=== PATIENT | female | born 1975 | race Caucasian/White ===

== ENCOUNTER 2019-07-01 11:29 | Outpatient (CLI) | payer BC, MEDICAID, SELFPAY ==
[2019-07-01 12:15] VITALS: PULSE 90; O2SAT 96
[2019-07-01 12:20] VITALS: PULSE 120; O2SAT 87
[2019-07-01 12:23] VITALS: O2SAT 91
[2019-07-01 12:45] VITALS: PULSE 96; O2SAT 95
--- NOTE | 2019-07-01 13:45 | HOMEO2EVAL ---
Home Oxygen Evaluation RC: Home Oxygen (O2) Evaluation Start: 07/01/19 13:41 Freq: Status: Active Protocol: RPE Activity Type Activity Date Activity User E-Sign Co-Sign Detail Recorded Client Recorded Date Recorded By Document 07/01/19 12:15 HUMPHREY [id number] 07/01/19 13:44 HUMPHREY Document 07/01/19 12:20 HUMPHREY [id number] 07/01/19 13:44 HUMPHREY Document 07/01/19 12:23 HUMPHREY [id number] 07/01/19 13:44 HUMPHREY Document 07/01/19 12:45 HUMPHREY [id number] 07/01/19 13:44 HUMPHREY 07/01/19 07/01/19 07/01/19 12:15 12:20 12:23 Home O2 Evaluation Test Phase Resting Exercise Exercise Oxygen Delivery Room Air Room Air Nasal Cannula Oxygen Flow Rate (L/min) 1 Pulse Oximetry (90-100 %) 96 87 L 91 Pulse Rate (60-100 beats/min) 90 120 H Ambulation Distance (feet) Home Oxygen Evaluation Comments Treatment Charges O2 Evaluation 07/01/19 12:45 Home O2 Evaluation Test Phase Resting Oxygen Delivery Room Air Oxygen Flow Rate (L/min) Pulse Oximetry (90-100 %) 95 Pulse Rate (60-100 beats/min) 96 Ambulation Distance (feet) 1,200 Home Oxygen Evaluation Comments PT WALKED FOR 6 MIN, WENT 1200 FEET TOTAL. PT REQUIRES 1 L WITH ACTIVITY/ EXERTION Treatment Charges
--- NOTE | 2019-07-01 13:46 | PCRCNOTE ---
HOME O2 EVAL DONE, PT REQUIRES 1 L WITH ACTIVITY. FAXED EVAL TO OFFICE IN [place]
== END 2019-07-01 11:30 | disposition home or self-care (01) ==
LOC: ANHPFT 11:32
PROVIDERS: PCP Nurse Practitioner; Visit Provider Internal Medicine Critical Care Medicine
DX: J44.9 Chronic obstructive pulmonary disease, unspecified (principal)
CPT/HCPCS: 94618

== ENCOUNTER 2019-09-13 15:16 | Emergency (ER) | payer BC, MEDICAID, SELFPAY ==
--- NOTE | ~2019-09-13 | XR_ITS ---
EXAMINATION: XR chest 2V DATE: 09/13/2019 16:47 INDICATION: Shortness of breath and cough. TECHNIQUE: Frontal and lateral views of the chest were obtained. COMPARISON: CT abdomen and pelvis 12/09/2018 FINDINGS: The chest demonstrates clear lungs without pneumonia, pleural effusion, or pneumothorax. Th e heart size is normal. There are old healed left rib fractures. IMPRESSION: 1. No acute cardiopulmonary disease. Reviewed, dictated and finalized at location A.
--- NOTE | 2019-09-13 15:29 | ECG_ITS ---
Measurements Intervals [place] Rate: 94 P: 67 [place]: 161 QRS: 50 QRSD: 82 T: 55 QT: 365 QTc: 458 Interpretive Statements SINUS RHYTHM BASELINE ARTIFACT- I, II, III, AVL, AVF, V1, V3 BORDERLINE ECG Electronically Signed On 09-13-2019 15:48:45 CDT by Dylan Byrd D.O.
[2019-09-13 15:30] VITALS: BP 148/74; PULSE 94; RESP 19; TEMP 36.9; O2SAT 100
[2019-09-13 15:43] LABS: Basophils Percent Auto 0.4 % (0.2-1.2); Eosinophils Absolute Auto 0.3 K/mm3 (0-0.3); Eosinophils Percent Auto 2.6 % (0-4.4); Hematocrit 41.2 % (37.0-47.0); Hemoglobin 14.2 g/dL (12.0-15.0); Immature Granulocyte Absolute 0.03 K/mm3 (0.00-0.031); Immature Granulocyte Percent A 0.3 % (0-0.5); Lymphocytes Absolute Auto 3.16 K/mm3 (0.9-3.2); Lymphocytes Percent Auto 29.9 % (18.3-44.2); Mean Corpuscular HGB Conc 34.5 g/dl (32-36); Mean Corpuscular Hemoglobin 29.9 pg (26-34); Mean Corpuscular Volume 86.7 fl (80-100); Mean Platelet Volume 9.1 fl (7.4-10.4); Monocytes Absolute Auto 0.9 K/mm3 (0.1-0.6); Monocytes Percent Auto 8.1 % (2.6-8.5); Neutrophils Absolute Auto 6.2 K/mm3 (1.3-6.7); Neutrophils Percent Auto 58.7 % (45.5-73.1); Platelet Count Result 349 k/mm3 (150-375); Red Blood Count 4.75 M/mm3 (4.2-5.4); Red Cell Distribution Width 13.2 % (11.5-14.5); White Blood Count 10.6 K/mm3 (4.5-10.0)
[2019-09-13 15:54] LABS: Blood Urea Nitrogen 5 mg/dL (7-17); Calcium 9.1 mg/dL (8.4-10.2); Carbon Dioxide 24 mmol/L (22-30); Chloride 105 mmol/L (98-107); Estimated Glomerular Filt Rate > 60; Glucose 84 mg/dL (65-105); Potassium 3.6 mmol/L (3.4-5.0); Sodium 135 mmol/L (137-145)
[2019-09-13 16:06] LABS: NT Pro B Type Natriuretic Pept 61 PG/ML (5-100); Troponin I < 0.012 ng/mL (0.000-0.034)
[2019-09-13 16:27] LABS: Add Urine Microscopic? NO; Appearance Urine Clear (Clear); Bilirubin Urine Negative (Negative); Blood Urine Negative (Negative); Color Urine Colorless (Yellow); Glucose Urine UA Negative (Negative); Ketones Urine Negative (Negative); Leukocyte Esterase Ur Negative LEU/UL (Negative); Nitrate Urine Negative (Negative); Protein Urine Negative (Negative); Urobilinogen Urine Negative mg/dL (<2.0)
[2019-09-13 16:34] LABS: Specific Grav Ur 1.003 (1.001-1.035)
[2019-09-13 18:18] VITALS: BP 149/76; PULSE 94; RESP 22; O2SAT 97
--- NOTE | 2019-09-13 18:48 | ED.GENADULT ---
HPI - General Adult General Chief complaint: Shortness of Breath/Dyspnea Stated complaint: diff breathing/legs swollen Time Seen by Provider: 09/13/19 18:22 History of Present Illness HPI narrative: Patient is a 44 y/o female complaining of moderate SOB for 2-3 weeks. There is no alleviating or exacerbating factor. She has no fever. She has some chest pain associated with cough. She also noticed leg swelling, worse on right side. She has history of COPD and she is on home O2 at 1L. She had a recent appointment with cardiology, but had to cancel her appointment because 3 family members tested positive for COVID. Related Data Allergies Allergy/AdvReac Type Severity Reaction Status Date / Time chlorpromazine Allergy Unknown Unknown Verified 12/09/18 17:25 haloperidol Allergy Unknown Unknown Verified 12/09/18 17:25 midodrine Allergy Unknown Unknown Verified 12/09/18 17:25 Penicillins Allergy Unknown Unknown Verified 12/09/18 17:25 Sulfa (Sulfonamide Allergy Unknown Other Verified 12/09/18 17:25 Antibiotics) thioridazine Allergy Unknown Unknown Verified 12/09/18 17:25 Review of Systems Constitutional: Constitutional: Denies chills, Denies fever(s), Denies headache(s) and Denies weakness Eyes: Eyes: Denies blurry vision ENT: Denies headache(s) and Denies neck pain Cardiovascular: Cardiovascular: Reports chest pain and Reports dyspnea Respiratory: Respiratory: Reports cough and Reports dyspnea Gastrointestinal: Gastrointestinal: Denies abdominal pain, Denies diarrhea, Denies nausea and Denies vomiting Genitourinary: Genitourinary: Denies hematuria and Denies dysuria Musculoskeletal: Musculoskeletal: Denies back pain and Denies neck pain Neurologic: Denies headache(s) and Denies weakness Exam Const: General: no acute distress and well developed Orientation/consciousness: oriented to person, oriented to place, oriented to time and patient oriented x3 HENMT: Head: normocephalic Ears: external ears normal General nose exam: Normal external nose present Eyes: General: appearance normal, both eyes and all related structures Conjunctivae: conjunctivae normal Neck: Neck: normal visual inspection and full ROM Chest: Chest palpation & inspection: normal inspection of the chest and no tenderness Resp: Effort & Inspection: normal respiratory effort and able to speak in complete sentences Cardio: Rate: regular rate Rhythm: regular rhythm GI: GI Palp: No abdominal tenderness and Yes Soft to palpation Skin: General skin exam: normal color and turgor normal Neuro: General: oriented to person, oriented to place, oriented to time and patient oriented x3 Cognition (Neuro): normal cognition Extrem: General: normal to inspection, full ROM and edema bilateral Psych: Appearance: grossly normal Mental Status: mental status grossly normal Affect: normal affect Course Vital Signs Vital signs: Vital Signs Temperature 36.9 C 09/13/19 15:30 Pulse Rate 94 09/13/19 15:30 Respiratory Rate 19 09/13/19 15:30 Blood Pressure 148/74 H 09/13/19 15:30 Pulse Oximetry 100 09/13/19 15:30 Temperature 36.9 C 09/13/19 15:30 Pulse Rate 94 09/13/19 18:18 Respiratory Rate 22 H 09/13/19 18:18 Blood Pressure 149/76 H 09/13/19 18:18 Pulse Oximetry 97 09/13/19 18:18 Medical Decision Making Vital Signs Vital Signs: Vital Signs Temperature 36.9 C 09/13/19 15:30 Pulse Rate 94 09/13/19 15:30 Respiratory Rate 19 09/13/19 15:30 Blood Pressure 148/74 H 09/13/19 15:30 Pulse Oximetry 100 09/13/19 15:30 Temperature 36.9 C 09/13/19 15:30 Pulse Rate 94 09/13/19 18:18 Respiratory Rate 22 H 09/13/19 18:18 Blood Pressure 149/76 H 09/13/19 18:18 Pulse Oximetry 97 09/13/19 18:18 Lab Data Result diagrams: 09/13/19 15:33 09/13/19 15:33 Labs: Lab Results 09/13/19 09/13/19 09/13/19 Range/Units 15:33 15:33 15:33 WBC 10.6 H (4.5-10.0) K/mm3 RBC
[2019-09-13 19:16] LABS: D Dimer 0.39 ug/mL (<0.48)
[2019-09-13 20:04] VITALS: BP 152/92; PULSE 80; RESP 18; O2SAT 98
[2019-09-14 14:52] LABS: SARS-CoV-2 RNA PCR Negative
== END 2019-09-13 20:05 | disposition home or self-care (01) ==
PROVIDERS: Emergency Medicine; Emergency Provider Emergency Medicine; PCP Nurse Practitioner Family
DX: Z20.828 Contact with and (suspected) exposure to other viral communicable diseases (principal); J44.1 Chronic obstructive pulmonary disease with (acute) exacerbation; Z99.81 Dependence on supplemental oxygen
CPT/HCPCS: 36415; 71046; 80048; 81003; 81025; 83880; 84484; 85025; 85380; 87635; 93005; 96374; 99284; C9803; J1100; U0003

== ENCOUNTER 2020-01-23 13:28 | Emergency (ER) | payer BC, MEDICAID, SELFPAY ==
[2020-01-23 13:33] VITALS: BP 124/71; PULSE 100; RESP 15; TEMP 36.4; O2SAT 97
--- NOTE | 2020-01-23 13:55 | PC.NURSE ---
patient brought back to ED room 20 with sores in bilateral axilla areas. see triage notes. alert. oriented. assessments documented. patient on home O2 at 2L NC. no distress noted. call light in reach.
--- NOTE | 2020-01-23 15:02 | ED.SKABFB ---
HPI - Skin/Abscess/Foreign Bdy General Chief complaint: Skin/Abscess/Foreign Body Stated complaint: sores all over for last week Time Seen by Provider: 01/23/20 14:13 Source: patient Mode of arrival: ambulatory Limitations: no limitations History of Present Illness HPI narrative: This is a 44-year-old female that presents to the emergency department for abscess to right axilla x1 week. Reports some drainage from the area. Reports history of abscesses. Denies fevers. Related Data Home Medications Medication Instructions Recorded Confirmed albuterol sulfate 01/23/20 albuterol sulfate INHALATION 01/23/20 amitriptyline 25 mg HS 01/23/20 amlodipine 01/23/20 budesonide-formoterol [Symbicort] INHALATION 01/23/20 buspirone mg 01/23/20 citalopram mg 01/23/20 clonazepam 01/23/20 clonidine HCl 01/23/20 doxycycline monohydrate 01/23/20 duloxetine mg PO 01/23/20 fluticasone propion-salmeterol INHALATION 01/23/20 [Advair Diskus] furosemide 01/23/20 hydroxyzine HCl 01/23/20 hyoscyamine sulfate mg 01/23/20 ipratropium-albuterol ml INHALATION 01/23/20 nicotine (polacrilex) mg 01/23/20 oxybutynin chloride mg PO 01/23/20 quetiapine 01/23/20 ranolazine mg PO 01/23/20 ropinirole mg 01/23/20 theophylline mg PO 01/23/20 Allergies Allergy/AdvReac Type Severity Reaction Status Date / Time acetaminophen [From Midrin] Allergy Other Verified 01/23/20 14:36 chlorpromazine Allergy Other Verified 01/23/20 14:36 [From Thorazine] dichloralphenazone Allergy Other Verified 01/23/20 14:36 [From Midrin] isometheptene [From Midrin] Allergy Other Verified 01/23/20 14:36 Penicillins Allergy Hives Verified 01/23/20 14:36 Sulfa (Sulfonamide Allergy Hives Verified 01/23/20 14:36 Antibiotics) thioridazine [From Mellaril] Allergy Other Verified 01/23/20 14:36 haloperidol [From Haldol] AdvReac Other Verified 01/23/20 14:36 Review of Systems Review of Systems: Narrative: CONSTITUTIONAL: Denies fever SKIN: Reports abscess All systems reviewed & are unremarkable except as noted in HPI and below PMFSH Past Medical History Medical History (Updated 01/23/20 @ 16:16 by Lexie Leon PA-C) History of bipolar disorder History of COPD Exam Narrative: Exam Narrative: GENERAL: Well-appearing, obese, and in no acute distress. HEAD: Normocephalic, atraumatic. EYES: EOMI. EXTREMITIES: Normal range of motion. No edema or erythema. Right axilla with 2 small (2cm) areas of erythema with central fluctuance with small amount of purulent drainage expressible. No lymphangitic streaking SKIN: Warm, dry, no rash. NEURO: No focal deficits. Alert and oriented x3. PSYCH: Normal mood and affect Course Vital Signs Vital signs: Vital Signs Temperature 97.5 F L 01/23/20 13:33 Pulse Rate 100 01/23/20 13:33 Respiratory Rate 15 01/23/20 13:33 Blood Pressure 124/71 01/23/20 13:33 Pulse Oximetry 97 01/23/20 13:33 Temperature 97.5 F L 01/23/20 13:33 Pulse Rate 100 01/23/20 13:33 Respiratory Rate 15 01/23/20 13:33 Blood Pressure 124/71 01/23/20 13:33 Pulse Oximetry 97 01/23/20 13:33 Procedures Abscess I/D upper extremity: Date of Incision: 01/23/20 Time of Incision: 16:04 Side (if applicable): right Local Anesthetic: lidocaine 1% and with epi Amount of anesthesia used (mL): 2 Technique: needle aspiration Packing used?: none I&D Results: Pus and Blood other: Date of Incision: 01/23/20 Time of Incision: 16:15 Side (if applicable): right Local Anesthetic: lidocaine 1% and with epi Amount of anesthesia used (mL): 2 Technique: needle aspiration Packing used?: none I&D Results: Pus and Blood MDM - Skin/Abscess/Foreign Bdy MDM Narrative Medical decision making narrative: Patient presents the emergency department for 2 small abscesses to the right axilla. These were I&D by chi
[2020-01-23] MEDS: LIDO 1%/EPINEPHRINE 1:100,000 20 ML VIAL INFILTRATE (15:39)
--- NOTE | 2020-01-23 15:59 | ED.SKABFB ---
HPI - Skin/Abscess/Foreign Bdy General Chief complaint: Skin/Abscess/Foreign Body Stated complaint: sores all over for last week Time Seen by Provider: 01/23/20 14:13 Source: patient Mode of arrival: ambulatory Limitations: no limitations History of Present Illness HPI narrative: This is a 44-year-old female that presents to the emergency department for abscess to right axilla x1 week. Does report drainage from the area. Denies fevers. Related Data Home Medications Medication Instructions Recorded Confirmed albuterol sulfate 01/23/20 albuterol sulfate INHALATION 01/23/20 amitriptyline 25 mg HS 01/23/20 amlodipine 01/23/20 budesonide-formoterol [Symbicort] INHALATION 01/23/20 buspirone mg 01/23/20 citalopram mg 01/23/20 clonazepam 01/23/20 clonidine HCl 01/23/20 doxycycline monohydrate 01/23/20 duloxetine mg PO 01/23/20 fluticasone propion-salmeterol INHALATION 01/23/20 [Advair Diskus] furosemide 01/23/20 hydroxyzine HCl 01/23/20 hyoscyamine sulfate mg 01/23/20 ipratropium-albuterol ml INHALATION 01/23/20 nicotine (polacrilex) mg 01/23/20 oxybutynin chloride mg PO 01/23/20 quetiapine 01/23/20 ranolazine mg PO 01/23/20 ropinirole mg 01/23/20 theophylline mg PO 01/23/20 Allergies Allergy/AdvReac Type Severity Reaction Status Date / Time acetaminophen [From Midrin] Allergy Other Verified 01/23/20 14:36 chlorpromazine Allergy Other Verified 01/23/20 14:36 [From Thorazine] dichloralphenazone Allergy Other Verified 01/23/20 14:36 [From Midrin] isometheptene [From Midrin] Allergy Other Verified 01/23/20 14:36 Penicillins Allergy Hives Verified 01/23/20 14:36 Sulfa (Sulfonamide Allergy Hives Verified 01/23/20 14:36 Antibiotics) thioridazine [From Mellaril] Allergy Other Verified 01/23/20 14:36 haloperidol [From Haldol] AdvReac Other Verified 11/22/20 14:36 Review of Systems Review of Systems: Narrative: CONSTITUTIONAL: Denies fever SKIN: Reports abscess All systems reviewed & are unremarkable except as noted in HPI and below PMFSH Past Medical History Medical History (Updated 01/23/20 @ 15:03 by Lexie Leon PA-C) History of bipolar disorder History of COPD Exam Narrative: Exam Narrative: GENERAL: Well-appearing, well-nourished, and in no acute distress. HEAD: Normocephalic, atraumatic. EYES: EOMI. EXTREMITIES: Normal range of motion. No edema. Right axilla with 2 small (2cm) areas of erythema with central fluctuance, no lymphangitic streaking SKIN: Warm, dry, no rash. NEURO: No focal deficits. Alert and oriented x3. PSYCH: Normal mood and affect Course Vital Signs Vital signs: Vital Signs Temperature 97.5 F L 01/23/20 13:33 Pulse Rate 100 01/23/20 13:33 Respiratory Rate 15 01/23/20 13:33 Blood Pressure 124/71 01/23/20 13:33 Pulse Oximetry 97 01/23/20 13:33 Temperature 97.5 F L 01/23/20 13:33 Pulse Rate 100 01/23/20 13:33 Respiratory Rate 15 01/23/20 13:33 Blood Pressure 124/71 01/23/20 13:33 Pulse Oximetry 97 01/23/20 13:33 Discharge Plan Discharge Prescriptions: No Action furosemide 40 mg tablet RF: 0 fluticasone propion-salmeterol [Advair Diskus] 250-50 mcg/dose blister with device INHALATION RF: 0 oxybutynin chloride 15 mg tablet extended release 24hr PO RF: 0 ropinirole 1 mg tablet RF: 0 ipratropium-albuterol 0.5 mg-3 mg(2.5 mg base)/3 mL solution for nebulization INHALATION RF: 0 citalopram 40 mg tablet RF: 0 nicotine (polacrilex) 2 mg gum RF: 0 albuterol sulfate 1.25 mg/3 mL solution for nebulization RF: 0 quetiapine 200 mg tablet RF: 0 amlodipine 2.5 mg tablet RF: 0 hydroxyzine HCl 50 mg tablet RF: 0 doxycycline monohydrate 100 mg tablet RF: 0 theophylline 300 mg tablet extended release 12 hr PO RF: 0 clonidine HCl 0.2 mg tablet RF: 0 amitri
--- NOTE | 2020-01-23 16:05 | PC.NURSE ---
provider in room now for I/D procedure.
[2020-01-23 16:24] VITALS: BP 148/78; PULSE 88; RESP 22; O2SAT 95
== END 2020-01-23 16:25 | disposition home or self-care (01) ==
PROVIDERS: Emergency Provider Emergency Medicine; PCP Nurse Practitioner Family
DX: L02.411 Cutaneous abscess of right axilla (principal); J44.9 Chronic obstructive pulmonary disease, unspecified; F31.9 Bipolar disorder, unspecified
CPT/HCPCS: 10160; 99283

== ENCOUNTER 2020-03-04 12:47 | Inpatient (IN) | payer BC, MEDICAID, SELFPAY ==
[2020-03-04] VITALS (15 sets, daily range): BP systolic 129–162; BP diastolic 58–99; PULSE 110–132; RESP 0–28; TEMP 36.4–38; O2SAT 96–100; BMI 33.2
--- NOTE | ~2020-03-04 | CT_ITS ---
EXAMINATION: CT abdomen pelvis w con INDICATION: Right upper quadrant pain, nausea, vomiting TECHNIQUE: Computed tomographic images of the abdomen and pelvis were obtained after the administrati on of 100 cc of Omnipaque 350 intravenous contrast. The dose-length product (DLP) was 952.25 mGy-cm. Automated exposure control and iterative reconstruction technique were employed. COMPARISON: 12/09/2018 FINDINGS: Minimal dependent atelectasis is present in the lung bases. The heart size is normal. Punct ate calcifications in an otherwise normal spleen likely represent healed granulomatous disease. 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 The pancreas, gallbladder, and adrenal glands are normal. The kidneys are un remarkable. No pathologically enlarged abdominal or pelvic lymph nodes are identified. There is calci fied atherosclerosis of the aorta and many of the other arteries. There is no free intraperitoneal ga s or evidence of bowel obstruction. There is a greater than normal number of fluid-filled, nondistend ed loops of large and small bowel. Liquid stool is present in the colon to the level of the rectum. T here is moderate lower thoracic spondylosis. A fat-containing umbilical hernia is noted. 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 IMPRESSION: 1. Greater than normal number of fluid-filled, nondistended loops of large and small bowel, consisten t with enterocolitis. Reviewed, dictated and finalized at location A. REPORT DEVELOPER IMPRESSION: 1. Greater than normal number of fluid-filled, nondistended loops of large and small bowel, consistent with enterocolitis.
--- NOTE | ~2020-03-04 | XR_ITS ---
EXAMINATION: XR chest 1V portable DATE: 03/04/2020 13:47 INDICATION: Viral infection. Shortness of breath. TECHNIQUE: frontal view of the chest was obtained. COMPARISON: Chest radiograph dated 09/13/2019 FINDINGS: The lungs remain clear with no focal airspace opacities, pulmonary edema, pleural effusion or pneumot horax. The cardiomediastinal silhouette is normal. Multiple old healed left-sided rib fractures. IMPRESSION: 1. No acute cardiopulmonary disease. Reviewed, dictated and finalized at location A. ING MANAGER
--- NOTE | 2020-03-04 13:06 | ECG_ITS ---
Measurements Intervals [place] Rate: 127 P: 66 VT: 137 QRS: 81 QRSD: 81 T: 75 QT: 401 QTc: 583 Interpretive Statements SINUS TACHYCARDIA BORDERLINE ST-T WAVE ABNORMALITY- DIFFUSE LEADS BASELINE WANDER- V1-V6 ABNORMAL ECG Electronically Signed On 03-04-2020 14:05:15 TAP DANCER by Dylan Byrd D.O.
[2020-03-04 13:21] LABS: Basophils Absolute Auto 0.1 K/mm3 (0.0-0.1); Basophils Percent Auto 1.1 % (0.2-1.2); Eosinophils Percent Auto 0.2 % (0-4.4); Hematocrit 45.3 % (37.0-47.0); Immature Granulocyte Absolute 0.02 K/mm3 (0.00-0.031); Immature Granulocyte Percent A 0.3 % (0-0.5); Lymphocytes Absolute Auto 1.11 K/mm3 (0.9-3.2); Lymphocytes Percent Auto 17.3 % (18.3-44.2); Mean Corpuscular HGB Conc 35.3 g/dl (32-36); Mean Corpuscular Hemoglobin 29.6 pg (26-34); Mean Corpuscular Volume 83.9 fl (80-100); Mean Platelet Volume 9.6 fl (7.4-10.4); Monocytes Absolute Auto 1.3 K/mm3 (0.1-0.6); Monocytes Percent Auto 19.9 % (2.6-8.5); Neutrophils Absolute Auto 3.9 K/mm3 (1.3-6.7); Neutrophils Percent Auto 61.2 % (45.5-73.1); Platelet Count Result 289 k/mm3 (150-375); Red Cell Distribution Width 12.3 % (11.5-14.5); White Blood Count 6.4 K/mm3 (4.5-10.0)
[2020-03-04 13:32] LABS: Alanine Aminotransferase 52 U/L (4-35); Albumin Level 4.1 g/dL (3.5-5.1); Alkaline Phosphatase 84 U/L (38-126); Anion Gap 14 mmol/L (8-16); Aspartate Amino Transferase 42 U/L (14-36); Bilirubin,Total 0.6 mg/dL (0.2-1.3); Blood Urea Nitrogen 12 mg/dL (7-17); Carbon Dioxide 21 mmol/L (22-30); Chloride 95 mmol/L (98-107); Estimated CRCL calculation 59 ml/min; Estimated Glomerular Filt Rate 48; Glucose 143 mg/dL (65-105); Lipase 20 U/L (23-300); Potassium 3.3 mmol/L (3.4-5.0); Sodium 130 mmol/L (137-145)
[2020-03-04] MEDS: ONDANSETRON INJ 4 MG/2 ML VIAL IV PUSH ×2 (13:48→19:29)
[2020-03-04] MEDS: SODIUM CHLORIDE 0.9% IV 1,000 ML 999 ML IV CONT (13:48)
--- NOTE | 2020-03-04 14:23 | WPDEDEXPGENP ---
HPI - General Ped General Chief complaint: Fever Stated complaint: FEVER, DIARRHEA, NAUSEA Time Seen by Provider: 03/04/20 13:32 Source: patient Limitations: no limitations History of Present Illness HPI narrative: 45 years old white female presents with nausea, vomiting and diarrhea for the last 2 days. Patient reports vomiting at least 12 times a day and diarrhea at least 12 times a day. Patient also complaining of general body aches, headache, right upper quadrant pain. Patient feeling miserable. Patient lives with asymptomatic family. Patient reports fever and chills. Patient on chronic oxygen by nasal cannula 2 L during daytime, 3 L at night. Patient denies a history of Covid or exposure to anybody known having Covid. Related Data Home Medications Medication Instructions Recorded Confirmed albuterol sulfate 01/23/20 albuterol sulfate INHALATION 01/23/20 amitriptyline 25 mg HS 01/23/20 amlodipine 01/23/20 budesonide-formoterol [Symbicort] INHALATION 01/23/20 buspirone mg 01/23/20 citalopram mg 01/23/20 clonazepam 01/23/20 clonidine HCl 01/23/20 doxycycline monohydrate 01/23/20 duloxetine mg PO 01/23/20 fluticasone propion-salmeterol INHALATION 01/23/20 [Advair Diskus] furosemide 01/23/20 hydroxyzine HCl 01/23/20 hyoscyamine sulfate mg 01/23/20 ipratropium-albuterol ml INHALATION 01/23/20 nicotine (polacrilex) mg 01/23/20 oxybutynin chloride mg PO 01/23/20 quetiapine 01/23/20 ranolazine mg PO 01/23/20 ropinirole mg 01/23/20 theophylline mg PO 01/23/20 Allergies Allergy/AdvReac Type Severity Reaction Status Date / Time chlorpromazine Allergy Unknown Unknown Verified 03/04/20 12:48 haloperidol Allergy Unknown Unknown Verified 03/04/20 12:48 midodrine Allergy Unknown Unknown Verified 03/04/20 12:48 Penicillins Allergy Unknown Unknown Verified 03/04/20 12:48 Sulfa (Sulfonamide Allergy Unknown Other Verified 03/04/20 12:48 Antibiotics) thioridazine Allergy Unknown Unknown Verified 03/04/20 12:48 acetaminophen [From Midrin] Allergy Other Verified 03/04/20 12:48 dichloralphenazone Allergy Other Verified 03/04/20 12:48 [From Midrin] isometheptene [From Midrin] Allergy Other Verified 03/04/20 12:48 Pediatric Review of Systems : Review of Systems: CONSTITUTIONAL: Denies fever, chills, or sweats. EYES: Denies visual changes, redness, or discharge. ENT: Denies rhinorrhea, congestion, sore throat, or otalgia. CARDIOVASCULAR: Denies chest pain, palpitations, or edema. RESPIRATORY: Denies cough or dyspnea. GASTROINTESTINAL: Complaining of nausea, vomiting, diarrhea, abdominal pain GENITOURINARY: Denies dysuria or hematuria. SKIN: Denies rash or itching. MUSCULOSKELETAL: Denies back pain, joint pain, or myalgia. NEUROLOGIC: Denies headache, numbness, or weakness. PSYCHIATRIC: Denies anxiety or depression. [facility] Past Medical History Medical History (Updated 03/04/20 @ 15:28 by India Key MD) History of bipolar disorder History of COPD Social History Social History Gender identity (if verbalized by the patient): Female Pediatric Exam Narrative: Physical exam: General appearance: Well-developed, well-nourished Skin: Normal color Head: Normocephalic, nontraumatic Eyes: Clear conjunctiva ENT: Oropharynx normal, ears normal, nose normal Neck: Supple, nontender Chest and respiratory: Airway patent, no respiratory distress, no accessory muscle use Heart: Tachycardia Abdomen: Soft, mild tenderness right upper quadrant. , no organomegaly, quiet bowel sounds Vascular: Normal peripheral pulses, normal capillary refill. Musculoskeletal: Normal range of motion, nontender back Neurologic: Alert and oriented ?3, [employer] is normal as tested, no gross motor deficit
[2020-03-04 15:05] LABS: Add Urine Microscopic? YES; Appearance Urine Clear (Clear); Bilirubin Urine Negative (Negative); Blood Urine 1+ (Negative); Color Urine Colorless (Yellow); Glucose Urine UA Negative (Negative); Ketones Urine Negative (Negative); Leukocyte Esterase Ur Negative LEU/UL (Negative); Mucus Urine Rare /lpf; Nitrate Urine Negative (Negative); Protein Urine Negative (Negative); RBC Urine 0-2 /hpf (0-2); Specific Grav Ur 1.023 (1.001-1.035); Squamous Epithelial Cell Urine Occasional /hpf (Few); Urobilinogen Urine Negative mg/dL (<2.0); WBC Urine 0-3 /hpf
[2020-03-04] MEDS: POTASSIUM CHLORIDE 20 MEQ TABLET PO (15:32)
--- NOTE | 2020-03-04 16:25 | PC.NURSE ---
This patient, Sofya Azevedo, was admitted to 3 [facility] Surg Room 302-01. Patient/family oriented to hospital policies and general routines including ID bracelet, bed and alarms, visiting hours, pain management, procedures, bathroom and other care routines, personal items, smoking policy, room service/diet, and visiting hours. Report received from Scott LOBO. Information on how to activate the Rapid Response Team has been discussed. Patient/Family are encouraged to report perceived risks to care and to ask questions if they do not understand what they are told or what they should do.
[2020-03-04] MEDS: SODIUM CHLORIDE 0.9% IV 1,000 ML 125 ML IV CONT (16:40)
--- NOTE | 2020-03-04 16:56 | PM.IMHP ---
H&P: HPI History of Present Illness Date/Time: 03/04/20 16:56 Chief Complaint: Nausea, vomiting and diarrhea Narrative: Sofya Azevedo is a 45 year old female patient is a 45-year-old female with history of chronic respiratory failure on home oxygen and COPD patient states she has diarrhea nausea or vomiting for last 2 days, patient also complains abdominal pain, patient states her daughter who was treated for C diff came home about 4 days and and 2 days later patient developed the symptoms, patient states she had a soup yesterday and she was able to hold it, most concern is the diarrhea, described as a mucous, no blood, does c/o feverish, tired fatigue, denies any cough shortness of breath or wheezing other than her underlining COPD, denies any known COVID contact, patient had a CT scan of abdominal showed Greater than normal number of fluid-filled, nondistended loops of large and small bowel, consistent with enterocolitis. Will send the stool for C diff and culture, will empirically start the patient on vancomycin orally and follow-up on C diff toxin and further recommendation to follow, continue hydrate the patient and monitor Review of Systems Review of Systems: All systems reviewed & are unremarkable except as noted in HPI and below PMFSH Past Medical History Medical History (Updated 03/04/20 @ 15:28 by India Key MD) History of bipolar disorder History of COPD Social History Social History Gender identity (if verbalized by the patient): Female Meds Home Medications and Allergies Home Medications Medication Instructions Recorded Confirmed Type methylprednisolone [Medrol (Sanjay)] See Rx Instructions .ROUTE 09/13/19 Rx .COMPLEX #21 each albuterol sulfate 01/23/20 History albuterol sulfate INHALATION 01/23/20 History amitriptyline 25 mg HS 01/23/20 History amlodipine 01/23/20 History budesonide-formoterol [Symbicort] INHALATION 01/23/20 History buspirone mg 01/23/20 History citalopram mg 01/23/20 History clonazepam 01/23/20 History clonidine HCl 01/23/20 History doxycycline hyclate 100 mg PO BID 7 Days #14 cap 01/23/20 Rx doxycycline monohydrate 01/23/20 History duloxetine mg PO 01/23/20 History fluticasone propion-salmeterol INHALATION 01/23/20 History [Advair Diskus] furosemide 01/23/20 History hydroxyzine HCl 01/23/20 History hyoscyamine sulfate mg 01/23/20 History ipratropium-albuterol ml INHALATION 01/23/20 History nicotine (polacrilex) mg 01/23/20 History oxybutynin chloride mg PO 01/23/20 History quetiapine 01/23/20 History ranolazine mg PO 01/23/20 History ropinirole mg 01/23/20 History theophylline mg PO 01/23/20 History Allergies Allergy/AdvReac Type Severity Reaction Status Date / Time chlorpromazine Allergy Unknown Unknown Verified 03/04/20 12:48 haloperidol Allergy Unknown Unknown Verified 03/04/20 12:48 midodrine Allergy Unknown Unknown Verified 03/04/20 12:48 Penicillins Allergy Unknown Unknown Verified 03/04/20 12:48 Sulfa (Sulfonamide Allergy Unknown Other Verified 03/04/20 12:48 Antibiotics) thioridazine Allergy Unknown Unknown Verified 03/04/20 12:48 acetaminophen [From Midrin] Allergy Other Verified 03/04/20 12:48 dichloralphenazone Allergy Other Verified 03/04/20 12:48 [From Midrin] isometheptene [From Midrin] Allergy Other Verified 03/04/20 12:48 Vital Signs Vital Signs - 24 hr 03/04/20 12:50 03/04/20 13:04 03/04/20 13:05 Temperature 97.6 F Pulse Rate 132 H 127 H 126 H Respiratory Rate 22 H 21 H 22 H Blood Pressure 142/78 H 129/94 H Pulse Oximetry 97 98 98 03/04/20 13:23 03/04/20 13:30 03/04/20 14:16 Temperature Pulse Rate 120 H 117 H 114 H Respiratory Rate 28 H 0 L 20 Blood Pressure Pulse Oximetry 98 98 100 03/04/20 14:39 03/04/20 14:40 03/04/20 15:14 Temperature Pulse Rate 110 H 113 H 111 H Respiratory Rate 20 18 18 Blood Pressure 162/88 H
[2020-03-04] MEDS: POTASSIUM CHLORIDE 20 MEQ TABLET.ER PO (18:22)
[2020-03-04] MEDS: VANCOMYCIN ORAL 125 MG/2.5 ML SYRUP PO (18:22)
[2020-03-05] VITALS (11 sets, daily range): BP systolic 90–140; BP diastolic 50–77; PULSE 76–125; RESP 16–20; TEMP 36.3–37.9; O2SAT 90–97
[2020-03-05] MEDS: SODIUM CHLORIDE 0.9% IV 1,000 ML 125 ML IV CONT ×3 (00:01→17:14)
[2020-03-05] MEDS: VANCOMYCIN ORAL 125 MG/2.5 ML SYRUP PO ×5 (00:05→23:34)
[2020-03-05] MEDS: ONDANSETRON INJ 4 MG/2 ML VIAL IV PUSH (04:22)
[2020-03-05 04:46] LABS: IFOB Positive Control Positive; Immunochemical Fecal Occult Bl Negative (N)
[2020-03-05 06:07] LABS: Hematocrit 44.3 % (37.0-47.0); Hemoglobin 14.8 g/dL (12.0-15.0); Mean Corpuscular HGB Conc 33.4 g/dl (32-36); Mean Corpuscular Hemoglobin 29.2 pg (26-34); Mean Corpuscular Volume 87.5 fl (80-100); Mean Platelet Volume 9.3 fl (7.4-10.4); Platelet Count Result 229 k/mm3 (150-375); Red Blood Count 5.06 M/mm3 (4.2-5.4); Red Cell Distribution Width 12.4 % (11.5-14.5)
[2020-03-05 06:35] LABS: Anion Gap 9 mmol/L (8-16); Blood Urea Nitrogen 9 mg/dL (7-17); Calcium 8.2 mg/dL (8.4-10.2); Carbon Dioxide 23 mmol/L (22-30); Chloride 101 mmol/L (98-107); Estimated CRCL calculation 75 ml/min; Estimated Glomerular Filt Rate > 60; Glucose 117 mg/dL (65-105); Potassium 3.2 mmol/L (3.4-5.0); Sodium 133 mmol/L (137-145)
[2020-03-05 07:26] LABS: Band Neutrophils Percent 15 % (0-6); Eosinophils Percent Manual 2 % (0-4); Metamyelocytes Percent 1 %; Monocytes Percent Manual 20 % (3-9); Neutrophils Absolute Manual 3.05 K/mm3 (1.7-7.2); Neutrophils Percent Manual 46 % (46-73); Nucleated Red Blood Cells 1 %; Total Cells Counted 100
[2020-03-05 07:36] LABS: Platelet Estimate Adequate (Adequate)
[2020-03-05 08:25] LABS: Magnesium 2.1 mg/dL (1.6-2.3)
[2020-03-05] MEDS: POTASSIUM CHLORIDE 20 MEQ TABLET 40 MEQ PO (08:55)
[2020-03-05] MEDS: POTASSIUM CHLORIDE 20 MEQ TABLET.ER PO (08:56)
[2020-03-05] MEDS: FUROSEMIDE 40 MG TABLET PO (10:46)
[2020-03-05] MEDS: PANTOPRAZOLE 40 MG TABLET PO ×2 (10:47→21:21)
[2020-03-05] MEDS: METOPROLOL TARTRATE 50 MG TAB 100 MG PO ×2 (10:47→21:24)
[2020-03-05] MEDS: RANOLAZINE 500 MG TAB.ER.12H PO ×2 (11:41→21:22)
[2020-03-05] MEDS: PRAVASTATIN SODIUM 20 MG TABLET 80 MG PO (11:41)
[2020-03-05] MEDS: DULoxetine HCL 60 MG CAPSULE.DR PO (11:41)
[2020-03-05] MEDS: SPIRONOLACTONE 50 MG TABLET 100 MG PO (11:41)
[2020-03-05] MEDS: busPIRone HCL 10 MG TABLET 30 MG PO ×2 (11:42→21:20)
[2020-03-05] MEDS: MONTELUKAST SODIUM 10 MG TABLET PO (11:42)
[2020-03-05] MEDS: QUEtiapine FUMARATE 100 MG TABLET 200 MG PO ×2 (11:42→21:20)
[2020-03-05] MEDS: cloNIDine HCL 0.2 MG TABLET PO ×2 (11:45→22:06)
[2020-03-05] MEDS: hydrOXYzine HCL 25 MG TABLET 50 MG PO ×3 (11:45→22:07)
--- NOTE | 2020-03-05 13:32 | PM.IMPN ---
Progress Note: A&P Assessment and Plan (1) Enterocolitis: Code(s): K52.9 - Noninfective gastroenteritis and colitis, unspecified Status: Acute Assessment and Plan: 03/05/20 13:32 Sofya Azevedo is a 45 year old female patient is a 45-year-old female with history of chronic respiratory failure on home oxygen and COPD patient states she has diarrhea nausea or vomiting for last 2 days, patient also complains abdominal pain, patient states her daughter who was treated for C diff came home about 4 days and and 2 days later patient developed the symptoms, patient states she had a soup yesterday and she was able to hold it, most concern is the diarrhea, described as a mucous, no blood, does c/o feverish, tired fatigue, denies any cough shortness of breath or wheezing other than her underlining COPD, denies any known COVID contact, patient had a CT scan of abdominal showed Greater than normal number of fluid-filled, nondistended loops of large and small bowel, consistent with enterocolitis. Today patient had a several loose BMs, still complains of nausea or vomiting did have a apple juice this morning and was able to home, denies any fever or chills We have sent the stool for C diff and culture still pending we have empirically started the patient on vancomycin orally and follow-up on C diff toxin and further recommendation to follow, continue hydrate the patient and monitor (2) Sinus tachycardia: Code(s): R00.0 - Tachycardia, unspecified Status: Acute Assessment and Plan: Most likely secondary to stress from diarrhea and dehydration (3) Hypokalemia: Code(s): E87.6 - Hypokalemia Status: Acute Assessment and Plan: Most likely secondary to diarrhea supplement and monitor (4) Acute hyponatremia: Code(s): E87.1 - Hypo-osmolality and hyponatremia Status: Acute Assessment and Plan: Most likely secondary to to dehydration will monitor (5) RUBY (acute kidney injury): Code(s): N17.9 - Acute kidney failure, unspecified Status: Acute Assessment and Plan: Most likely secondary dehydration will monitor kidney function (6) COVID-19 virus test result unknown: Code(s): Z20.828 - Contact with and (suspected) exposure to other viral communicable diseases Status: Acute Assessment and Plan: Patient is being tested an isolated Subjective Date/time seen: 03/05/20 13:32 Sofya Azevedo is a 45 year old female patient is a 45-year-old female with history of chronic respiratory failure on home oxygen and COPD patient states she has diarrhea nausea or vomiting for last 2 days, patient also complains abdominal pain, patient states her daughter who was treated for C diff came home about 4 days and and 2 days later patient developed the symptoms, patient states she had a soup yesterday and she was able to hold it, most concern is the diarrhea, described as a mucous, no blood, does c/o feverish, tired fatigue, denies any cough shortness of breath or wheezing other than her underlining COPD, denies any known COVID contact, patient had a CT scan of abdominal showed Greater than normal number of fluid-filled, nondistended loops of large and small bowel, consistent with enterocolitis. Today patient had a several loose BMs, still complains of nausea or vomiting did have a apple juice this morning and was able to home, denies any fever or chills We have sent the stool for C diff and culture still pending we have empirically started the patient on vancomycin orally and follow-up on C diff toxin and further recommendation to follow, continue hydrate the patient and monitor Review of Systems Review of Systems: All systems reviewed & are unremarkable except as noted in HPI and below Exam Narrative: Exam Narrative: Moderately obese Patient is comfortable, NAD HEENT: eyes are clear and none icteric LUNGS: Normal respiratory effort ABD: Obese and distended
[2020-03-05] MEDS: HYOSCYAMINE SULFATE 0.125 MG TABLET PO (17:20)
[2020-03-05 20:47] LABS: SARS-CoV-2 RNA PCR Negative
[2020-03-05] MEDS: NICOTINE (*PBKC) 2 MG GUM PO (21:20)
[2020-03-05] MEDS: AMITRIPTYLINE HCL 25 MG TABLET PO (21:25)
[2020-03-05] MEDS: rOPINIRole HCL 1 MG TABLET PO (21:26)
[2020-03-05] MEDS: CITALOPRAM HYDROBROMIDE 20 MG TABLET 40 MG PO (22:06)
[2020-03-05] MEDS: ACETAMINOPHEN 325 MG TABLET 650 MG PO (23:28)
[2020-03-06] VITALS (7 sets, daily range): BP systolic 84–104; BP diastolic 42–60; PULSE 73–77; RESP 16–22; TEMP 36.4–37.1; O2SAT 92–96; BMI 33.2
[2020-03-06] MEDS: SODIUM CHLORIDE 0.9% IV 1,000 ML 125 ML IV CONT ×2 (01:49→21:23)
[2020-03-06] MEDS: VANCOMYCIN ORAL 125 MG/2.5 ML SYRUP PO ×3 (05:19→17:37)
[2020-03-06 06:57] LABS: Hemoglobin 13.7 g/dL (12.0-15.0); Mean Corpuscular HGB Conc 35.1 g/dl (32-36); Mean Corpuscular Hemoglobin 29.5 pg (26-34); Mean Corpuscular Volume 83.9 fl (80-100); Mean Platelet Volume 9.4 fl (7.4-10.4); Platelet Count Result 252 k/mm3 (150-375); Red Blood Count 4.65 M/mm3 (4.2-5.4); Red Cell Distribution Width 12.3 % (11.5-14.5); White Blood Count 7.3 K/mm3 (4.5-10.0)
[2020-03-06 07:20] LABS: Anion Gap 11 mmol/L (8-16); Blood Urea Nitrogen 10 mg/dL (7-17); Calcium 8.6 mg/dL (8.4-10.2); Carbon Dioxide 25 mmol/L (22-30); Chloride 96 mmol/L (98-107); Estimated CRCL calculation 68 ml/min; Estimated Glomerular Filt Rate 59; Glucose 109 mg/dL (65-105); Potassium 2.7 mmol/L (3.4-5.0); Sodium 132 mmol/L (137-145)
[2020-03-06] MEDS: POTASSIUM CHLORIDE 20 MEQ TABLET 40 MEQ PO (08:51)
[2020-03-06] MEDS: ONDANSETRON INJ 4 MG/2 ML VIAL IV PUSH (08:56)
[2020-03-06] MEDS: busPIRone HCL 10 MG TABLET 30 MG PO ×2 (09:00→17:34)
[2020-03-06] MEDS: cloNIDine HCL 0.2 MG TABLET PO ×2 (09:00→17:20)
[2020-03-06] MEDS: DULoxetine HCL 60 MG CAPSULE.DR PO (09:00)
[2020-03-06] MEDS: METOPROLOL TARTRATE 50 MG TAB 100 MG PO (09:03)
[2020-03-06] MEDS: hydrOXYzine HCL 25 MG TABLET 50 MG PO ×3 (09:03→21:09)
[2020-03-06] MEDS: PANTOPRAZOLE 40 MG TABLET PO ×2 (09:05→21:10)
[2020-03-06] MEDS: MONTELUKAST SODIUM 10 MG TABLET PO (09:06)
[2020-03-06] MEDS: QUEtiapine FUMARATE 100 MG TABLET 200 MG PO ×2 (09:07→21:10)
[2020-03-06] MEDS: PRAVASTATIN SODIUM 20 MG TABLET 80 MG PO (09:07)
[2020-03-06] MEDS: SPIRONOLACTONE 50 MG TABLET 100 MG PO (09:08)
[2020-03-06] MEDS: RANOLAZINE 500 MG TAB.ER.12H PO ×2 (09:08→17:37)
--- NOTE | 2020-03-06 14:01 | PM.IMPN ---
Progress Note: A&P Assessment and Plan (1) Enterocolitis: Code(s): K52.9 - Noninfective gastroenteritis and colitis, unspecified Status: Acute Assessment and Plan: 03/06/20 14:01 Sofya Azevedo is a 45 year old female patient is a 45-year-old female with history of chronic respiratory failure on home oxygen and COPD patient states she has diarrhea nausea or vomiting for last 2 days, patient also complains abdominal pain, patient states her daughter who was treated for C diff came home about 4 days and and 2 days later patient developed the symptoms, patient states she had a soup yesterday and she was able to hold it, most concern is the diarrhea, described as a mucous, no blood, does c/o feverish, tired fatigue, denies any cough shortness of breath or wheezing other than her underlining COPD, denies any known COVID contact, patient had a CT scan of abdominal showed Greater than normal number of fluid-filled, nondistended loops of large and small bowel, consistent with enterocolitis. Covid is negative Today patient had a several loose BMs, still complains of nausea or vomiting did have a jello this morning and was able to hold it denies any fever or chills, will start patient on full liquids. We have sent the stool for C diff and culture still pending we have empirically started the patient on vancomycin orally and follow-up on C diff toxin and further recommendation to follow, continue hydrate the patient and monitor (2) Sinus tachycardia: Code(s): R00.0 - Tachycardia, unspecified Status: Acute Assessment and Plan: Most likely secondary to stress from diarrhea and dehydration (3) Hypokalemia: Code(s): E87.6 - Hypokalemia Status: Acute Assessment and Plan: Most likely secondary to diarrhea supplement and monitor (4) Acute hyponatremia: Code(s): E87.1 - Hypo-osmolality and hyponatremia Status: Acute Assessment and Plan: Most likely secondary to to dehydration will monitor (5) RUBY (acute kidney injury): Code(s): N17.9 - Acute kidney failure, unspecified Status: Acute Assessment and Plan: Most likely secondary dehydration will monitor kidney function (6) COVID-19 virus test result unknown: Code(s): Z20.828 - Contact with and (suspected) exposure to other viral communicable diseases Status: Acute Assessment and Plan: Patient is being tested an isolated Subjective Date/time seen: 03/06/20 14:01 Sofya Azevedo is a 45 year old female patient is a 45-year-old female with history of chronic respiratory failure on home oxygen and COPD patient states she has diarrhea nausea or vomiting for last 2 days, patient also complains abdominal pain, patient states her daughter who was treated for C diff came home about 4 days and and 2 days later patient developed the symptoms, patient states she had a soup yesterday and she was able to hold it, most concern is the diarrhea, described as a mucous, no blood, does c/o feverish, tired fatigue, denies any cough shortness of breath or wheezing other than her underlining COPD, denies any known COVID contact, patient had a CT scan of abdominal showed Greater than normal number of fluid-filled, nondistended loops of large and small bowel, consistent with enterocolitis. Covid is negative Today patient had a several loose BMs, still complains of nausea or vomiting did have a jello this morning and was able to hold it denies any fever or chills, will start patient on full liquids. We have sent the stool for C diff and culture still pending we have empirically started the patient on vancomycin orally and follow-up on C diff toxin and further recommendation to follow, continue hydrate the patient and monitor Review of Systems Review of Systems: All systems reviewed & are unremarkable except as noted in HPI and below Exam Narrative: Exam Narrative: Moderately obese Patient is comfortable,
--- NOTE | 2020-03-06 14:22 | PCWOUND ---
WOCN NOTE Received referral to see patient for pressure. no pressure charted. spoke to day RN, received report that no pressure and referral was mistake.
[2020-03-06 15:23] LABS: Anion Gap 12 mmol/L (8-16); Blood Urea Nitrogen 14 mg/dL (7-17); Calcium 8.9 mg/dL (8.4-10.2); Carbon Dioxide 21 mmol/L (22-30); Chloride 98 mmol/L (98-107); Estimated CRCL calculation 68 ml/min; Estimated Glomerular Filt Rate 59; Glucose 108 mg/dL (65-105); Potassium 3.4 mmol/L (3.4-5.0); Sodium 131 mmol/L (137-145)
[2020-03-06] MEDS: AMITRIPTYLINE HCL 25 MG TABLET PO (21:09)
[2020-03-06] MEDS: CITALOPRAM HYDROBROMIDE 20 MG TABLET 40 MG PO (21:09)
[2020-03-06] MEDS: rOPINIRole HCL 1 MG TABLET PO (21:10)
[2020-03-07] VITALS (11 sets, daily range): BP systolic 95–135; BP diastolic 48–61; PULSE 69–102; RESP 18–20; TEMP 36.3–36.9; O2SAT 93–98
[2020-03-07] MEDS: VANCOMYCIN ORAL 125 MG/2.5 ML SYRUP PO ×4 (00:47→16:33)
[2020-03-07] MEDS: SODIUM CHLORIDE 0.9% IV 1,000 ML 125 ML IV CONT ×2 (06:34→15:38)
[2020-03-07 06:48] LABS: Hematocrit 39.3 % (37.0-47.0); Hemoglobin 13.6 g/dL (12.0-15.0); Mean Corpuscular HGB Conc 34.6 g/dl (32-36); Mean Corpuscular Hemoglobin 28.6 pg (26-34); Mean Corpuscular Volume 82.7 fl (80-100); Mean Platelet Volume 9.5 fl (7.4-10.4); Platelet Count Result 289 k/mm3 (150-375); Red Blood Count 4.75 M/mm3 (4.2-5.4); Red Cell Distribution Width 12.1 % (11.5-14.5); White Blood Count 11.2 K/mm3 (4.5-10.0)
[2020-03-07 06:51] LABS: Anion Gap 7 mmol/L (8-16); Blood Urea Nitrogen 16 mg/dL (7-17); Calcium 8.3 mg/dL (8.4-10.2); Carbon Dioxide 25 mmol/L (22-30); Chloride 101 mmol/L (98-107); Estimated CRCL calculation 62 ml/min; Estimated Glomerular Filt Rate 53; Glucose 103 mg/dL (65-105); Magnesium 2.1 mg/dL (1.6-2.3); Potassium 3.3 mmol/L (3.4-5.0); Sodium 133 mmol/L (137-145)
[2020-03-07] MEDS: hydrOXYzine HCL 25 MG TABLET 50 MG PO ×4 (09:30→21:02)
[2020-03-07] MEDS: busPIRone HCL 10 MG TABLET 30 MG PO ×2 (09:30→16:31)
[2020-03-07] MEDS: QUEtiapine FUMARATE 100 MG TABLET 200 MG PO ×2 (09:30→21:03)
[2020-03-07] MEDS: POTASSIUM CHLORIDE 20 MEQ TABLET PO (09:30)
[2020-03-07] MEDS: RANOLAZINE 500 MG TAB.ER.12H PO ×2 (09:30→16:32)
[2020-03-07] MEDS: PRAVASTATIN SODIUM 20 MG TABLET 80 MG PO (09:30)
[2020-03-07] MEDS: MONTELUKAST SODIUM 10 MG TABLET PO (09:30)
[2020-03-07] MEDS: FUROSEMIDE 40 MG TABLET PO (09:30)
[2020-03-07] MEDS: DULoxetine HCL 60 MG CAPSULE.DR PO (09:30)
[2020-03-07] MEDS: SPIRONOLACTONE 50 MG TABLET 100 MG PO (09:30)
[2020-03-07] MEDS: cloNIDine HCL 0.2 MG TABLET PO (09:30)
[2020-03-07] MEDS: METOPROLOL TARTRATE 50 MG TAB 100 MG PO (09:30)
[2020-03-07] MEDS: PANTOPRAZOLE 40 MG TABLET PO ×2 (09:52→21:03)
--- NOTE | 2020-03-07 14:17 | PM.IMPN ---
Progress Note: A&P Assessment and Plan (1) Enterocolitis: Code(s): K52.9 - Noninfective gastroenteritis and colitis, unspecified Status: Acute Assessment and Plan: 03/06/20 14:01 Sofya Azevedo is a 45 year old female patient is a 45-year-old female with history of chronic respiratory failure on home oxygen and COPD patient states she has diarrhea nausea or vomiting for last 2 days, patient also complains abdominal pain, patient states her daughter who was treated for C diff came home about 4 days and and 2 days later patient developed the symptoms, patient states she had a soup yesterday and she was able to hold it, most concern is the diarrhea, described as a mucous, no blood, does c/o feverish, tired fatigue, denies any cough shortness of breath or wheezing other than her underlining COPD, denies any known COVID contact, patient had a CT scan of abdominal showed Greater than normal number of fluid-filled, nondistended loops of large and small bowel, consistent with enterocolitis. Covid is negative 03/07/20 14:17 Covid is negative Today patient had a several loose BMs, still complains of nausea or vomiting did have a jello on 03/06 morning and was able to hold it denies any fever or chills, will start patient on full liquids. We have sent the stool for C diff and culture still pending we have empirically started the patient on vancomycin orally and follow-up on C diff toxin, today patient blood culture is growing Salmonella species not typhi will consult Dr. jesus further recommendation and continue to hydrate the patient and monitor. (2) Sinus tachycardia: Code(s): R00.0 - Tachycardia, unspecified Status: Acute Assessment and Plan: Most likely secondary to stress from diarrhea and dehydration (3) Hypokalemia: Code(s): E87.6 - Hypokalemia Status: Acute Assessment and Plan: Most likely secondary to diarrhea supplement and monitor (4) Acute hyponatremia: Code(s): E87.1 - Hypo-osmolality and hyponatremia Status: Acute Assessment and Plan: Most likely secondary to to dehydration will monitor (5) RUBY (acute kidney injury): Code(s): N17.9 - Acute kidney failure, unspecified Status: Acute Assessment and Plan: Most likely secondary dehydration will monitor kidney function (6) COVID-19 virus test result unknown: Code(s): Z20.828 - Contact with and (suspected) exposure to other viral communicable diseases Status: Acute Assessment and Plan: Patient is being tested an isolated Subjective Date/time seen: 03/07/20 14:17 Covid is negative Today patient had a several loose BMs, still complains of nausea or vomiting did have a jello on 03/06 morning and was able to hold it denies any fever or chills, will start patient on full liquids. We have sent the stool for C diff and culture still pending we have empirically started the patient on vancomycin orally and follow-up on C diff toxin, today patient blood culture is growing Salmonella species not typhi will consult Dr. jesus further recommendation and continue to hydrate the patient and monitor Review of Systems Review of Systems: All systems reviewed & are unremarkable except as noted in HPI and below Exam Narrative: Exam Narrative: Moderately obese Patient is comfortable, NAD HEENT: eyes are clear and none icteric LUNGS: Normal respiratory effort ABD: Obese and distended Lower extremities: no edema SKIN: nonjaundiced Neuro: grossly intact normal speech. Objective Data Vital Signs Vital Signs: Vital Signs - 24 hr 03/06/20 21:00 03/06/20 21:05 03/06/20 22:49 Temperature 97.7 F Pulse Rate 74 Respiratory Rate 18 Blood Pressure 84/42 L 98/60 L Pulse Oximetry 96 96 03/07/20 00:00 03/07/20 04:00 03/07/20 06:00 Temperature 97.3 F L Pulse Rate 69 88 76 Respiratory Rate 20 Blood Pressure 95/48 L Pulse Oximetry 95 03/07/20
[2020-03-07] MEDS: ALBUTEROL SULFATE NEB 2.5 MG/0.5 ML INH INHALATION (20:42)
[2020-03-07] MEDS: IPRATROPIUM BR 0.02% INH SOLN 0.5 MG/2.5 ML VIAL INHALATION (20:42)
[2020-03-07] MEDS: CITALOPRAM HYDROBROMIDE 20 MG TABLET 40 MG PO (21:02)
[2020-03-07] MEDS: AMITRIPTYLINE HCL 25 MG TABLET PO (21:02)
[2020-03-07] MEDS: rOPINIRole HCL 1 MG TABLET PO (21:04)
[2020-03-08] VITALS (11 sets, daily range): BP systolic 107–131; BP diastolic 54–66; PULSE 70–96; RESP 16–20; TEMP 36.4–36.5; O2SAT 94
[2020-03-08] MEDS: SODIUM CHLORIDE 0.9% IV 1,000 ML 125 ML IV CONT ×2 (00:05→14:30)
[2020-03-08] MEDS: VANCOMYCIN ORAL 125 MG/2.5 ML SYRUP PO ×3 (00:53→11:39)
--- NOTE | 2020-03-08 03:32 | PC.NURSE ---
DINING ROOM HELPER notified this RN patient's telemetery box was off and leads . RN went to room and found tele box off, IV was pulled out and wrapped around patient's body. Tele leads were between legs and underneath her. O2 was off on the floor. Patient stated she can't help what happens while she is sleeping. Educated patient on importance of tele monitoring and IV hydration. Tele leads were replaced. IV had been initiated by IV specialist. Will request IV replacement by specialist in AM. Charge nurse notified of situation.
[2020-03-08] MEDS: HYOSCYAMINE SULFATE 0.125 MG TABLET PO (06:07)
[2020-03-08 06:17] LABS: Hematocrit 41.8 % (37.0-47.0); Hemoglobin 14.7 g/dL (12.0-15.0); Mean Corpuscular HGB Conc 35.2 g/dl (32-36); Mean Corpuscular Hemoglobin 29.1 pg (26-34); Mean Corpuscular Volume 82.8 fl (80-100); Mean Platelet Volume 9.3 fl (7.4-10.4); Platelet Count Result 337 k/mm3 (150-375); Red Blood Count 5.05 M/mm3 (4.2-5.4); Red Cell Distribution Width 12.4 % (11.5-14.5); White Blood Count 17.4 K/mm3 (4.5-10.0)
[2020-03-08] MEDS: ONDANSETRON HCL ODT 4 MG TABLET PO (06:44)
[2020-03-08 06:45] LABS: Anion Gap 12 mmol/L (8-16); Blood Urea Nitrogen 13 mg/dL (7-17); Calcium 8.9 mg/dL (8.4-10.2); Carbon Dioxide 25 mmol/L (22-30); Chloride 95 mmol/L (98-107); Estimated CRCL calculation 75 ml/min; Estimated Glomerular Filt Rate > 60; Glucose 104 mg/dL (65-105); Potassium 2.9 mmol/L (3.4-5.0); Sodium 132 mmol/L (137-145)
[2020-03-08] MEDS: busPIRone HCL 10 MG TABLET 30 MG PO ×2 (08:52→16:57)
[2020-03-08] MEDS: POTASSIUM CHLORIDE 20 MEQ TABLET 40 MEQ PO (08:52)
[2020-03-08] MEDS: DULoxetine HCL 60 MG CAPSULE.DR PO (08:53)
[2020-03-08] MEDS: hydrOXYzine HCL 25 MG TABLET 50 MG PO ×4 (08:53→20:29)
[2020-03-08] MEDS: cloNIDine HCL 0.2 MG TABLET PO ×3 (08:53→16:57)
[2020-03-08] MEDS: METOPROLOL TARTRATE 50 MG TAB 100 MG PO (08:53)
[2020-03-08] MEDS: MONTELUKAST SODIUM 10 MG TABLET PO (08:54)
[2020-03-08] MEDS: PANTOPRAZOLE 40 MG TABLET PO ×2 (08:54→20:29)
[2020-03-08] MEDS: PRAVASTATIN SODIUM 20 MG TABLET 80 MG PO (08:54)
[2020-03-08] MEDS: SPIRONOLACTONE 50 MG TABLET 100 MG PO (08:55)
[2020-03-08] MEDS: QUEtiapine FUMARATE 100 MG TABLET 200 MG PO ×2 (08:55→20:30)
[2020-03-08] MEDS: RANOLAZINE 500 MG TAB.ER.12H PO ×2 (08:55→16:57)
--- NOTE | 2020-03-08 13:33 | WPDINFPN2 ---
Progress Note: A&P Assessment and Plan (1) Enterocolitis: Code(s): K52.9 - Noninfective gastroenteritis and colitis, unspecified Status: Acute Assessment and Plan: Salmonella enteritis with bacteremia. Her use of a PPI is a known risk factor, but I cannot identify the responsible food ingestion REC Ctx # 1, until 03/10 at the earliest. Subjective Date/time seen: 03/08/20 13:33 Objective Data Vital Signs Vital Signs: Vital Signs - 24 hr 03/07/20 14:00 03/07/20 16:18 03/07/20 20:00 Temperature 36.9 C Pulse Rate 74 78 Respiratory Rate 18 Blood Pressure 107/54 L Pulse Oximetry 93 96 98 03/07/20 20:42 03/07/20 22:00 03/08/20 00:00 Temperature 36.4 C L Pulse Rate 74 72 80 Respiratory Rate 18 18 Blood Pressure 135/61 Pulse Oximetry 98 98 03/08/20 04:00 03/08/20 06:00 03/08/20 08:00 Temperature 36.4 C L Pulse Rate 94 96 79 Respiratory Rate 18 Blood Pressure 131/66 Pulse Oximetry 94 94 03/08/20 08:53 03/08/20 12:00 Temperature Pulse Rate 70 82 Respiratory Rate Blood Pressure Pulse Oximetry Intake/Output Intake/Output: Intake & Output 03/05/20 03/06/20 03/07/20 03/08/20 23:59 23:59 23:59 23:59 Intake Total 5660 2750 3880 875 Output Total 900 200 Balance 4760 2550 3880 875 Meds/Results Medications: Active Medications Generic Name Dose Route Start Last Admin Trade Name Freq PRN Reason Stop Dose Admin Acetaminophen 650 mg 03/05/20 21:50 03/05/20 23:28 Acetaminophen 325 Mg Tablet PO 650 mg Q4H PRN Administration Mild Pain (1-3) or Fever Albuterol 2 puff 03/05/20 09:13 Albuterol Sulfate (*Sp) Aerosol 1 Puff INHALATION Q4H PRN Shortness Of Breath Albuterol 2.5 mg 03/05/20 09:40 03/07/20 20:42 Albuterol Sulfate Neb 2.5 Mg/0.5 Ml Inh INHALATION 2.5 mg QID PRN Administration Shortness Of Breath Amitriptyline HCl 25 mg 03/05/20 21:00 03/07/20 21:02 Amitriptyline Hcl 25 Mg Tablet PO 25 mg HS ZENOBIA Administration Budesonide/Formoterol Fumarate 2 puff 03/05/20 08:00 03/08/20 08:51 Budesonide/Form 160-4.5 Mcg (*Sp) INHALATION 2 puff Q12HRT ZENOBIA Administration Buspirone HCl 30 mg 03/05/20 11:10 03/08/20 08:52 Buspirone Hcl 10 Mg Tablet PO 30 mg BID ZENOBIA Administration Citalopram Hydrobromide 40 mg 03/05/20 21:00 03/07/20 21:02 Citalopram Hydrobromide 20 Mg Tablet PO 40 mg HS ZENOBIA Administration Clonazepam 2 mg 03/05/20 09:13 Clonazepam (*Crx) 0.5 Mg Tablet PO BID PRN Anxiety Clonidine HCl 0.2 mg 03/05/20 13:00 03/08/20 12:41 Clonidine Hcl 0.2 Mg Tablet PO 0.2 mg TID ZENOBIA Administration Duloxetine HCl 60 mg 03/05/20 11:03 03/08/20 08:53 Duloxetine Hcl 60 Mg Capsule.Dr PO 60 mg QAM ZENOBIA Administration Furosemide 40 mg 03/05/20 09:00 03/07/20 09:30 Furosemide 40 Mg Tablet PO 40 mg Q48H ZENOBIA Administration Hydroxyzine HCl 50 mg 03/05/20 13:00 03/08/20 12:41 Hydroxyzine Hcl 25 Mg Tablet PO 50 mg QID ZENOBIA Administration Hyoscyamine 0.125 mg 03/05/20 09:13 03/08/20 06:07 Hyoscyamine Sulfate 0.125 Mg Tablet PO 0.125 mg TID PRN Administration Cramps Sodium Chloride 1,000 mls @ 125 mls/hr 03/04/20 15:40 03/08/20 03:30 Normal Saline Iv IV CONT 125 mls/hr .Q8H ZENOBIA Infusion Ipratropium [place] 0.5 mg 03/05/20 09:41 03/07/20 20:42 Ipratropium Br 0.02% Inh Soln 0.5 Mg/2.5 Ml Vial INHALATION 0.5 mg QID PRN Administration Shortness Of Breath Metoprolol Tartrate 100 mg 03/05/20 09:15 03/08/20 08:53 Metoprolol Tartrate 50 Mg Tab PO 100 mg Q12HR ZENOBIA Administration Montelukast Sodium 10 mg 03/05/20 11:05 03/08/20 08:54 Montelukast Sodium 10 Mg Tablet PO 10 mg DAILY ZENOBIA Administration Nicotine Polacrilex 2 mg 03/05/20 09:13 03/05/20 21:20 Nicotine (*Pbkc) 2 Mg Gum PO 2 mg Q3H PRN Administration Nicotine Cravings Non-Formulary Medication
--- NOTE | 2020-03-08 14:45 | PM.IMPN ---
Progress Note: A&P Assessment and Plan (1) Enterocolitis: Code(s): K52.9 - Noninfective gastroenteritis and colitis, unspecified Status: Acute Assessment and Plan: 03/08/20 14:45 Sofya Azevedo is a 45 year old female patient is a 45-year-old female with history of chronic respiratory failure on home oxygen and COPD patient states she has diarrhea nausea or vomiting for last 2 days, patient also complains abdominal pain, patient states her daughter who was treated for C diff came home about 4 days and and 2 days later patient developed the symptoms, patient states she had a soup yesterday and she was able to hold it, most concern is the diarrhea, described as a mucous, no blood, does c/o feverish, tired fatigue, denies any cough shortness of breath or wheezing other than her underlining COPD, denies any known COVID contact, patient had a CT scan of abdominal showed Greater than normal number of fluid-filled, nondistended loops of large and small bowel, consistent with enterocolitis. Covid is negative 03/08 Covid is negative Today patient had a several loose BMs, still complains of nausea or vomiting did have a jello on 03/06 morning and was able to hold it denies any fever or chills, will start patient on full liquids. We have sent the stool for C diff and culture which is negaative, we had empirically started the patient on vancomycin orally its been stopped, patient blood culture is growing Salmonella species not typhi seen by Dr. Cleary started the patient on ceftriaxone recommending for a days, will continue to monitor and further recommendation to follow. (2) Sinus tachycardia: Code(s): R00.0 - Tachycardia, unspecified Status: Acute Assessment and Plan: Most likely secondary to stress from diarrhea and dehydration (3) Hypokalemia: Code(s): E87.6 - Hypokalemia Status: Acute Assessment and Plan: Most likely secondary to diarrhea supplement and monitor (4) Acute hyponatremia: Code(s): E87.1 - Hypo-osmolality and hyponatremia Status: Acute Assessment and Plan: Most likely secondary to to dehydration will monitor (5) RUBY (acute kidney injury): Code(s): N17.9 - Acute kidney failure, unspecified Status: Acute Assessment and Plan: Most likely secondary dehydration will monitor kidney function (6) COVID-19 virus test result unknown: Code(s): Z20.828 - Contact with and (suspected) exposure to other viral communicable diseases Status: Acute Assessment and Plan: Patient is being tested an isolated Subjective Date/time seen: 03/08/20 14:45 Sofya Azevedo is a 45 year old female patient is a 45-year-old female with history of chronic respiratory failure on home oxygen and COPD patient states she has diarrhea nausea or vomiting for last 2 days, patient also complains abdominal pain, patient states her daughter who was treated for C diff came home about 4 days and and 2 days later patient developed the symptoms, patient states she had a soup yesterday and she was able to hold it, most concern is the diarrhea, described as a mucous, no blood, does c/o feverish, tired fatigue, denies any cough shortness of breath or wheezing other than her underlining COPD, denies any known COVID contact, patient had a CT scan of abdominal showed Greater than normal number of fluid-filled, nondistended loops of large and small bowel, consistent with enterocolitis. Covid is negative 03/08 Covid is negative Today patient had a several loose BMs, still complains of nausea or vomiting did have a jello on 03/06 morning and was able to hold it denies any fever or chills, will start patient on full liquids. We have sent the stool for C diff and culture which is negaative, we had empirically started the patient on vancomycin orally its been stopped, patient blood culture is growing Salmonella species not typhi seen by Dr. Cleary started the patient o
--- NOTE | 2020-03-08 19:18 | CONS_ITS ---
DATE OF CONSULTATION: 03/08/2020 REASON FOR CONSULTATION: Salmonella bacteremia. HISTORY OF PRESENT ILLNESS: A 45-year-old female who customarily takes omeprazole 40 mg once daily. She is , has a 26-year-old daughter who apparently was hospitalized last week with diarrhea in the setting of inflammatory bowel disease. She apparently was found to have C difficile infection. Further details not available. Otherwise, the patient's and daughter have been well. The patient does almost all the cooking and denies any ingestion of undercooked or uncooked food. She has not had wild game in over 20 years. She has no close exposure to livestock at her house in [place]. She does not work outside the home. Has not eaten at any restaurants recently and has no pets. She presented to this hospital on March 04 with nausea, vomiting, diarrhea, abdominal pain of 2 days' duration. Blood cultures were collected and she was started on oral vancomycin and consultation now requested. No other recent antibiotics. She denies any systemic immunosuppressants now nor in the recent past. MEDICATIONS: Extensive home medication list reviewed. ALLERGIES: PENICILLIN AND SULFA. REACTIONS UNKNOWN. HABITS: Two pack per day smoker. No alcohol. FAMILY HISTORY: CLL, diabetes, heart disease, cancer. SOCIAL HISTORY: As above. PAST MEDICAL HISTORY: Bipolar disorder and COPD. REVIEW OF SYSTEMS: Diarrhea persists, has malaise. 14-point review otherwise negative. PHYSICAL EXAMINATION: GENERAL: This is a female, who appears older than her actual age. No respiratory distress. VITAL SIGNS: Temperature shortly after arrival was 38, len up to 37.9 the following day, now afebrile 24 hours +, 96, 18, 131/66, 94% on 2 L. SKIN: No generalized rashes. Warm and dry. NODES: She has no cervical adenopathy. EENT: The conjunctivae are normal. Pupils equal, round, and reactive to light. The oropharynx, oral mucosa normal. NECK: No masses, thyromegaly, nodes, and she has no meningismus. LUNGS: Clear to auscultation and percussion. Good air entry. CARDIAC: Soft S1, S2. Regular rate and rhythm. No heaves and no gallops. ABDOMEN: Morbidly obese, nontender. No masses. No organomegaly. EXTREMITIES: No clubbing, cyanosis, edema. LABORATORY DATA: Blood cultures 2/2 sets, salmonella species, not typhi. I reviewed the susceptibilities including STEVIE values for C difficile assay 03/04/2020, nonreactive. Giardia antigen nonreactive. White count was 11.2, now 17.4; hemoglobin 14.7; platelets are 337. No differential done recently, though on admission showed a left shift. She has mild hyponatremia, hypokalemia. Remainder of the chemistry panel today is normal. RADIOLOGY: Abdomen and pelvic CT, fluid-filled nondilated loops of large and small bowel, atherosclerosis seen. Old rib fractures on the left. ASSESSMENT: 1. Salmonella bacteremia, true infection. This is in association with enterocolitis and is a source of the bacteremia. We could not identify the inciting food ingestion. Her proton pump inhibitor is a known risk factor for salmonella infection. She is otherwise not immunocompromised. 2. Bipolar disorder. 3. Chronic obstructive pulmonary disease. 4. Exposure to Clostridium difficile in her household, she is not in need of treatment nor prophylaxis. RECOMMENDATIONS: 1. Stop oral vancomycin. 2. Begin ceftriaxone, we use this agent rather than a more narrow spectrum agent such as ampicillin, due to her allergy history. Anticipate at least 3 doses total of her ceftriaxone dosed once daily. 3. Not in need of isolation. 4. Do not anticipate IV antibiotics after discharge. Thank you very much for asking me to see her.
[2020-03-08] MEDS: AMITRIPTYLINE HCL 25 MG TABLET PO (20:29)
[2020-03-08] MEDS: rOPINIRole HCL 1 MG TABLET PO (20:29)
[2020-03-08] MEDS: CITALOPRAM HYDROBROMIDE 20 MG TABLET 40 MG PO (20:30)
[2020-03-09] MEDS: SODIUM CHLORIDE 0.9% IV 1,000 ML 125 ML IV CONT ×3 (01:43→16:54)
[2020-03-09 06:00] VITALS: BP 134/52; PULSE 85; RESP 18; TEMP 36.5; O2SAT 92
[2020-03-09 06:48] LABS: Hematocrit 41.7 % (37.0-47.0); Hemoglobin 14.6 g/dL (12.0-15.0); Mean Corpuscular Hemoglobin 29.5 pg (26-34); Mean Corpuscular Volume 84.2 fl (80-100); Mean Platelet Volume 9.4 fl (7.4-10.4); Platelet Count Result 339 k/mm3 (150-375); Red Blood Count 4.95 M/mm3 (4.2-5.4); Red Cell Distribution Width 12.6 % (11.5-14.5); White Blood Count 16.3 K/mm3 (4.5-10.0)
[2020-03-09 07:05] LABS: Anion Gap 8 mmol/L (8-16); Blood Urea Nitrogen 15 mg/dL (7-17); Calcium 8.6 mg/dL (8.4-10.2); Carbon Dioxide 29 mmol/L (22-30); Chloride 98 mmol/L (98-107); Estimated CRCL calculation 75 ml/min; Estimated Glomerular Filt Rate > 60; Glucose 98 mg/dL (65-105); Magnesium 2.3 mg/dL (1.6-2.3); Potassium 3.6 mmol/L (3.4-5.0); Sodium 135 mmol/L (137-145)
[2020-03-09] MEDS: busPIRone HCL 10 MG TABLET 30 MG PO ×2 (08:37→16:48)
[2020-03-09] MEDS: DULoxetine HCL 60 MG CAPSULE.DR PO (08:38)
[2020-03-09] MEDS: hydrOXYzine HCL 25 MG TABLET 50 MG PO ×3 (08:38→16:48)
[2020-03-09] MEDS: cloNIDine HCL 0.2 MG TABLET PO ×2 (08:38→12:14)
[2020-03-09] MEDS: FUROSEMIDE 40 MG TABLET PO (08:38)
[2020-03-09 08:39] VITALS: PULSE 68
[2020-03-09] MEDS: METOPROLOL TARTRATE 50 MG TAB 100 MG PO (08:39)
[2020-03-09] MEDS: MONTELUKAST SODIUM 10 MG TABLET PO (08:39)
[2020-03-09] MEDS: PANTOPRAZOLE 40 MG TABLET PO (08:39)
[2020-03-09] MEDS: PRAVASTATIN SODIUM 20 MG TABLET 80 MG PO (08:39)
[2020-03-09] MEDS: QUEtiapine FUMARATE 100 MG TABLET 200 MG PO (08:40)
[2020-03-09] MEDS: SPIRONOLACTONE 50 MG TABLET 100 MG PO (08:40)
[2020-03-09] MEDS: RANOLAZINE 500 MG TAB.ER.12H PO ×2 (08:40→16:48)
[2020-03-09 09:00] VITALS: PULSE 68; RESP 18; O2SAT 92
--- NOTE | 2020-03-09 11:47 | PCNFU ---
Nutrition Follow-Up Complete: Inadequate Oral Intake as related to enterocolitis as evidenced by poor po intake reported. Monitoring: Meet estimated nutritional needs Progressing towards goal. We will continue current goal. Pt current nutrition is Full liquids. Nutrition recommendation: advance as tolerated per MD orders. Last recorded weight is 90.5 kg, no new weight reported. Bowel Motility:+BM 03/09, diarrhea still noted. Labs Reviewed:Na 135 Meds Noted:Lasix,Protonix,Symbicort, Rocephin. Additional Notes: Nutrition follow up. Patient consumed 30% of breakfast tray. Overall intake's have been 25-50% of meals. Patient is positive for Salmonella, antibiotics have started. Diet supplements of Banatrol Plus TID for stool bulking. Monitoring: Will monitor every 5 days.
[2020-03-09 14:00] VITALS: BP 100/60; PULSE 77; RESP 16; TEMP 36; O2SAT 100
--- NOTE | 2020-03-09 14:01 | PM.IMPN ---
Progress Note: A&P Assessment and Plan (1) Enterocolitis: Code(s): K52.9 - Noninfective gastroenteritis and colitis, unspecified Status: Acute Assessment and Plan: 03/09/20 14:01 Sofya Azevedo is a 45 year old female patient is a 45-year-old female with history of chronic respiratory failure on home oxygen and COPD patient states she has diarrhea nausea or vomiting for last 2 days, patient also complains abdominal pain, patient states her daughter who was treated for C diff came home about 4 days and and 2 days later patient developed the symptoms, patient states she had a soup yesterday and she was able to hold it, most concern is the diarrhea, described as a mucous, no blood, does c/o feverish, tired fatigue, denies any cough shortness of breath or wheezing other than her underlining COPD, denies any known COVID contact, patient had a CT scan of abdominal showed Greater than normal number of fluid-filled, nondistended loops of large and small bowel, consistent with enterocolitis. Covid is negative on 03/08 patient had a several loose BMs, still complains of nausea or vomiting did have a jello on 03/06 morning and was able to hold it denies any fever or chills, will start patient on full liquids. We have sent the stool for C diff and culture which is negaative, we had empirically started the patient on vancomycin orally its been stopped, patient blood culture is growing Salmonella species not typhi seen by Dr. Cleary started the patient on ceftriaxone recommending until 03/10, PPI is a risk factor for the infection, will stop pronotnix, there is some improvement in he symptoms, does not want advance her diet will continue to monitor and further recommendation to follow. (2) Sinus tachycardia: Code(s): R00.0 - Tachycardia, unspecified Status: Acute Assessment and Plan: Most likely secondary to stress from diarrhea and dehydration (3) Hypokalemia: Code(s): E87.6 - Hypokalemia Status: Acute Assessment and Plan: Most likely secondary to diarrhea supplement and monitor (4) Acute hyponatremia: Code(s): E87.1 - Hypo-osmolality and hyponatremia Status: Acute Assessment and Plan: Most likely secondary to to dehydration will monitor (5) RUBY (acute kidney injury): Code(s): N17.9 - Acute kidney failure, unspecified Status: Acute Assessment and Plan: Most likely secondary dehydration will monitor kidney function (6) COVID-19 virus test result unknown: Code(s): Z20.828 - Contact with and (suspected) exposure to other viral communicable diseases Status: Acute Assessment and Plan: Patient is being tested an isolated Subjective Date/time seen: 03/09/20 14:01 Sofya Azevedo is a 45 year old female patient is a 45-year-old female with history of chronic respiratory failure on home oxygen and COPD patient states she has diarrhea nausea or vomiting for last 2 days, patient also complains abdominal pain, patient states her daughter who was treated for C diff came home about 4 days and and 2 days later patient developed the symptoms, patient states she had a soup yesterday and she was able to hold it, most concern is the diarrhea, described as a mucous, no blood, does c/o feverish, tired fatigue, denies any cough shortness of breath or wheezing other than her underlining COPD, denies any known COVID contact, patient had a CT scan of abdominal showed Greater than normal number of fluid-filled, nondistended loops of large and small bowel, consistent with enterocolitis. Covid is negative on 03/08 patient had a several loose BMs, still complains of nausea or vomiting did have a jello on 03/06 morning and was able to hold it denies any fever or chills, will start patient on full liquids. We have sent the stool for C diff and culture which is negaative, we had empirically started the patient on vancomycin orally its been stopped, patient blood culture is [place]
--- NOTE | 2020-03-09 14:02 | WPDINFPN2 ---
Progress Note: A&P Assessment and Plan (1) Enterocolitis: Code(s): K52.9 - Noninfective gastroenteritis and colitis, unspecified Status: Acute Assessment and Plan: 1.Salmonella enteritis with bacteremia. Her use of a PPI is a known risk factor. 2. PCN and sulfa allergies 3. Leukocytosis due to #1 REC Ctx # 2, until 03/10 at the earliest, guided by symptoms and repeat CBC. On analgesics levsin and APAP. Subjective Date/time seen: 03/09/20 14:02 Interval history: BM x 4 yesterday, patient reports more today not yet charted. Liquid with some formed stool mixed in. RLQ pain Exam Narrative: Exam Narrative: afebrile Const: General: no acute distress Other: morbidly obese Eyes: General: appearance normal, both eyes and all related structures Resp: Effort & Inspection: normal respiratory effort Auscultation: clear to auscultation bilaterally Cardio: Rate: regular rate Rhythm: regular rhythm Heart sounds: no murmurs Skin: General skin exam: normal color and no rashes or lesions noted Objective Data Vital Signs Vital Signs: Vital Signs - 24 hr 03/08/20 16:00 03/08/20 20:00 03/08/20 20:34 Temperature Pulse Rate 79 81 Respiratory Rate Blood Pressure Pulse Oximetry 94 03/08/20 22:00 03/09/20 06:00 03/09/20 08:39 Temperature 36.5 C 36.5 C Pulse Rate 81 85 68 Respiratory Rate 16 18 Blood Pressure 107/54 L 134/52 L Pulse Oximetry 94 92 03/09/20 09:00 Temperature Pulse Rate 68 Respiratory Rate 18 Blood Pressure Pulse Oximetry 92 Intake/Output Intake/Output: Intake & Output 03/06/20 03/07/20 03/08/20 03/09/20 23:59 23:59 23:59 23:59 Intake Total 2750 3880 2955 1350 Output Total 200 Balance 2550 3880 2955 1350 Meds/Results Medications: Active Medications Generic Name Dose Route Start Last Admin Trade Name Freq PRN Reason Stop Dose Admin Acetaminophen 650 mg 03/05/20 21:50 03/05/20 23:28 Acetaminophen 325 Mg Tablet PO 650 mg Q4H PRN Administration Mild Pain (1-3) or Fever Albuterol 2.5 mg 03/05/20 09:40 03/07/20 20:42 Albuterol Sulfate Neb 2.5 Mg/0.5 Ml Inh INHALATION 2.5 mg QID PRN Administration Shortness Of Breath Amitriptyline HCl 25 mg 03/05/20 21:00 03/08/20 20:29 Amitriptyline Hcl 25 Mg Tablet PO 25 mg HS ZENOBIA Administration Budesonide/Formoterol Fumarate 2 puff 03/05/20 08:00 03/09/20 08:36 Budesonide/Form 160-4.5 Mcg (*Sp) INHALATION 2 puff Q12HRT ZENOBIA Administration Buspirone HCl 30 mg 03/05/20 11:10 03/09/20 08:37 Buspirone Hcl 10 Mg Tablet PO 30 mg BID ZENOBIA Administration Citalopram Hydrobromide 40 mg 03/05/20 21:00 03/08/20 20:30 Citalopram Hydrobromide 20 Mg Tablet PO 40 mg HS ZENOBIA Administration Clonazepam 2 mg 03/05/20 09:13 Clonazepam (*Crx) 0.5 Mg Tablet PO BID PRN Anxiety Clonidine HCl 0.2 mg 03/05/20 13:00 03/09/20 12:14 Clonidine Hcl 0.2 Mg Tablet PO 0.2 mg TID ZENOBIA Administration Duloxetine HCl 60 mg 03/05/20 11:03 03/09/20 08:38 Duloxetine Hcl 60 Mg Capsule.Dr PO 60 mg QAM ZENOBIA Administration Furosemide 40 mg 03/05/20 09:00 03/09/20 08:38 Furosemide 40 Mg Tablet PO 40 mg Q48H ZENOBIA Administration Hydroxyzine HCl 50 mg 03/05/20 13:00 03/09/20 12:14 Hydroxyzine Hcl 25 Mg Tablet PO 50 mg QID ZENOBIA Administration Hyoscyamine 0.125 mg 03/05/20 09:13 03/08/20 06:07 Hyoscyamine Sulfate 0.125 Mg Tablet PO 0.125 mg TID PRN Administration Cramps Sodium Chloride 1,000 mls @ 125 mls/hr 03/04/20 15:40 03/09/20 08:45 Normal Saline Iv IV CONT 125 mls/hr .Q8H ZENOBIA Administration Ceftriaxone Sodium/Dextrose 1 gm in 50 mls @ 100 mls/hr 03/08/20 14:00 03/09/20 14:01 Rocephin 1 Gm/D5w 50 Ml IVPB 100 mls/hr Q24H ZENOBIA Administration Ipratropium [place] 0.5 mg 03/05/20 09:41 03/07/20 20:42 Ipratropium Br 0.02% Inh Soln 0.5 Mg/2.5 Ml Vial INHALATION 0.5 mg QID PRN Admin
[2020-03-09 20:45] VITALS: BP 95/58; PULSE 64; RESP 16; TEMP 36.1; O2SAT 96
--- NOTE | 2020-03-09 21:27 | PC.NURSE ---
This nurse entered patient's room to administer the 2100 medications, pt was sleeping on initial assessment. When this nurse came up to the pt to wake them, there was pill bottles with medication in them inside a bag at the pt's bedside. When the pt was questioned if they took medication from those bottles, they answered that they took all my nighttime ones. Pt's vitals were obtained and the physician was notified, pt was also educated on hospital policies regarding home medications. Will continue to monitor pt.
[2020-03-10] VITALS (7 sets, daily range): BP systolic 94–133; BP diastolic 51–68; PULSE 71–88; RESP 16–20; TEMP 36.6–36.9; O2SAT 95–100
[2020-03-10] MEDS: SODIUM CHLORIDE 0.9% IV 1,000 ML 125 ML IV CONT ×3 (00:34→20:24)
[2020-03-10 06:14] LABS: Hematocrit 35.2 % (37.0-47.0); Hemoglobin 12.2 g/dL (12.0-15.0); Mean Corpuscular HGB Conc 34.7 g/dl (32-36); Mean Corpuscular Volume 83.6 fl (80-100); Mean Platelet Volume 9.3 fl (7.4-10.4); Platelet Count Result 314 k/mm3 (150-375); Red Blood Count 4.21 M/mm3 (4.2-5.4); Red Cell Distribution Width 12.6 % (11.5-14.5); White Blood Count 12.8 K/mm3 (4.5-10.0)
[2020-03-10 06:32] LABS: Anion Gap 8 mmol/L (8-16); Blood Urea Nitrogen 10 mg/dL (7-17); Calcium 8.2 mg/dL (8.4-10.2); Carbon Dioxide 26 mmol/L (22-30); Chloride 103 mmol/L (98-107); Estimated CRCL calculation 75 ml/min; Estimated Glomerular Filt Rate > 60; Glucose 85 mg/dL (65-105); Magnesium 1.9 mg/dL (1.6-2.3); Potassium 2.7 mmol/L (3.4-5.0); Sodium 137 mmol/L (137-145)
[2020-03-10] MEDS: RANOLAZINE 500 MG TAB.ER.12H PO ×2 (08:08→16:15)
[2020-03-10] MEDS: PRAVASTATIN SODIUM 20 MG TABLET 80 MG PO (08:08)
[2020-03-10] MEDS: hydrOXYzine HCL 25 MG TABLET 50 MG PO ×4 (08:09→20:17)
[2020-03-10] MEDS: QUEtiapine FUMARATE 100 MG TABLET 200 MG PO ×2 (08:09→20:17)
[2020-03-10] MEDS: DULoxetine HCL 60 MG CAPSULE.DR PO (08:09)
[2020-03-10] MEDS: busPIRone HCL 10 MG TABLET 30 MG PO ×2 (08:09→16:15)
[2020-03-10] MEDS: MONTELUKAST SODIUM 10 MG TABLET PO (08:09)
[2020-03-10] MEDS: clonazePAM (*CRX) 0.5 MG TABLET 2 MG PO ×2 (08:18→20:22)
--- NOTE | 2020-03-10 13:35 | PM.IMPN ---
Progress Note: A&P Assessment and Plan (1) Enterocolitis: Code(s): K52.9 - Noninfective gastroenteritis and colitis, unspecified Status: Acute Assessment and Plan: 03/10/20 13:35 Sofya Azevedo is a 45 year old female patient is a 45-year-old female with history of chronic respiratory failure on home oxygen and COPD patient states she has diarrhea nausea or vomiting for last 2 days, patient also complains abdominal pain, patient states her daughter who was treated for C diff came home about 4 days and and 2 days later patient developed the symptoms, patient states she had a soup yesterday and she was able to hold it, most concern is the diarrhea, described as a mucous, no blood, does c/o feverish, tired fatigue, denies any cough shortness of breath or wheezing other than her underlining COPD, denies any known COVID contact, patient had a CT scan of abdominal showed Greater than normal number of fluid-filled, nondistended loops of large and small bowel, consistent with enterocolitis. Covid is negative on 03/08 patient had a several loose BMs, still complains of nausea or vomiting did have a jello on 03/06 morning and was able to hold it denies any fever or chills, will start patient on full liquids. We have sent the stool for C diff and culture which is negaative, we had empirically started the patient on vancomycin orally its been stopped, patient blood culture is growing Salmonella species not typhi seen by Dr. Cleary started the patient on ceftriaxone recommending until 03/10, PPI is a risk factor for the infection, will stop pronotnix, there is some improvement in he symptoms, does not want advance her diet will continue to monitor and further recommendation to follow. 03/10 today patient states appetite is little better, able to tolerate and no nausea or vomiting, still continued to have loose bowel movement, feels tired and fatigue, hypokalemia most likely secondary to diarrhea will supplement and monitor, today patient will complete her Rocephin today, will continue monitor patient as her symptoms improved will do the discharge planning. (2) Sinus tachycardia: Code(s): R00.0 - Tachycardia, unspecified Status: Acute Assessment and Plan: Most likely secondary to stress from diarrhea and dehydration (3) Hypokalemia: Code(s): E87.6 - Hypokalemia Status: Acute Assessment and Plan: Most likely secondary to diarrhea supplement and monitor (4) Acute hyponatremia: Code(s): E87.1 - Hypo-osmolality and hyponatremia Status: Acute Assessment and Plan: Most likely secondary to to dehydration will monitor (5) RUBY (acute kidney injury): Code(s): N17.9 - Acute kidney failure, unspecified Status: Acute Assessment and Plan: Most likely secondary dehydration will monitor kidney function (6) COVID-19 virus test result unknown: Code(s): Z20.828 - Contact with and (suspected) exposure to other viral communicable diseases Status: Acute Assessment and Plan: Patient is being tested an isolated Subjective Date/time seen: 03/10/20 13:35 Sofya Azevedo is a 45 year old female patient is a 45-year-old female with history of chronic respiratory failure on home oxygen and COPD patient states she has diarrhea nausea or vomiting for last 2 days, patient also complains abdominal pain, patient states her daughter who was treated for C diff came home about 4 days and and 2 days later patient developed the symptoms, patient states she had a soup yesterday and she was able to hold it, most concern is the diarrhea, described as a mucous, no blood, does c/o feverish, tired fatigue, denies any cough shortness of breath or wheezing other than her underlining COPD, denies any known COVID contact, patient had a CT scan of abdominal showed Greater than normal number of fluid-filled, nondistended loops of large and small bowel, consistent with enterocolitis. Covid is neg
[2020-03-10 15:25] LABS: Anion Gap 5 mmol/L (8-16); Blood Urea Nitrogen 7 mg/dL (7-17); Calcium 7.8 mg/dL (8.4-10.2); Carbon Dioxide 25 mmol/L (22-30); Chloride 104 mmol/L (98-107); Estimated CRCL calculation 84 ml/min; Estimated Glomerular Filt Rate > 60; Glucose 88 mg/dL (65-105); Potassium 2.9 mmol/L (3.4-5.0); Sodium 134 mmol/L (137-145)
--- NOTE | 2020-03-10 15:49 | WPDINFPN2 ---
Progress Note: A&P Assessment and Plan (1) Enterocolitis: Code(s): K52.9 - Noninfective gastroenteritis and colitis, unspecified Status: Acute Assessment and Plan: 1.Salmonella enteritis with bacteremia. Her use of a PPI is a known risk factor. 2. PCN and sulfa allergies 3. Leukocytosis due to #1, some improvement but still at 12 REC Ctx # 3, until 03/11 at the earliest, guided by symptoms and repeat CBC. On analgesics levsin and APAP. Ok addition of loperamide. Once WBC below 11 and her symptoms are better, cefdinir 300 bid po through 03/17/20. Subjective Date/time seen: 03/10/20 15:49 Interval history: still with diarrhea, no blood Exam Narrative: Exam Narrative: afebrile Const: General: no acute distress Resp: Effort & Inspection: normal respiratory effort Auscultation: clear to auscultation bilaterally Cardio: Rate: regular rate Rhythm: regular rhythm Heart sounds: no gallops and no murmurs GI: Inspection: non-distended GI Palp: Yes Soft to palpation, No Tenderness to palpation present (GI) and No Guarding due to palpation present (GI) Percussion: Yes normal to percussion Skin: General skin exam: normal color and no rashes or lesions noted Objective Data Vital Signs Vital Signs: Vital Signs - 24 hr 03/09/20 20:45 03/10/20 05:44 03/10/20 08:00 Temperature 36.1 C L 36.7 C Pulse Rate 64 71 Respiratory Rate 16 16 Blood Pressure 95/58 L 94/53 L Pulse Oximetry 96 95 99 03/10/20 08:10 03/10/20 11:00 Temperature 36.9 C Pulse Rate 74 Respiratory Rate 20 Blood Pressure 118/51 L Pulse Oximetry 99 95 Intake/Output Intake/Output: Intake & Output 03/07/20 03/08/20 03/09/20 03/10/20 23:59 23:59 23:59 23:59 Intake Total 3880 2955 3840 2670 Balance 3880 2955 3840 2670 Meds/Results Medications: Active Medications Generic Name Dose Route Start Last Admin Trade Name Freq PRN Reason Stop Dose Admin Acetaminophen 650 mg 03/05/20 21:50 03/05/20 23:28 Acetaminophen 325 Mg Tablet PO 650 mg Q4H PRN Administration Mild Pain (1-3) or Fever Albuterol 2.5 mg 03/05/20 09:40 03/07/20 20:42 Albuterol Sulfate Neb 2.5 Mg/0.5 Ml Inh INHALATION 2.5 mg QID PRN Administration Shortness Of Breath Amitriptyline HCl 25 mg 03/05/20 21:00 03/09/20 21:27 Amitriptyline Hcl 25 Mg Tablet PO Not Given HS ZENOBIA Budesonide/Formoterol Fumarate 2 puff 03/05/20 08:00 03/10/20 08:14 Budesonide/Form 160-4.5 Mcg (*Sp) INHALATION 2 puff Q12HRT ZENOBIA Administration Buspirone HCl 30 mg 03/05/20 11:10 03/10/20 08:09 Buspirone Hcl 10 Mg Tablet PO 30 mg BID ZENOBIA Administration Citalopram Hydrobromide 40 mg 03/05/20 21:00 03/09/20 21:27 Citalopram Hydrobromide 20 Mg Tablet PO Not Given HS ZENOBIA Clonazepam 2 mg 03/05/20 09:13 03/10/20 08:18 Clonazepam (*Crx) 0.5 Mg Tablet PO 2 mg BID PRN Administration Anxiety Clonidine HCl 0.2 mg 03/05/20 13:00 03/10/20 13:55 Clonidine Hcl 0.2 Mg Tablet PO Not Given TID ZENOBIA Duloxetine HCl 60 mg 03/05/20 11:03 03/10/20 08:09 Duloxetine Hcl 60 Mg Capsule.Dr PO 60 mg QAM ZENOBIA Administration Furosemide 40 mg 03/05/20 09:00 03/09/20 08:38 Furosemide 40 Mg Tablet PO 40 mg Q48H ZENOBIA Administration Hydroxyzine HCl 50 mg 03/05/20 13:00 03/10/20 12:28 Hydroxyzine Hcl 25 Mg Tablet PO 50 mg QID ZENOBIA Administration Hyoscyamine 0.125 mg 03/05/20 09:13 03/08/20 06:07 Hyoscyamine Sulfate 0.125 Mg Tablet PO 0.125 mg TID PRN Administration Cramps Sodium Chloride 1,000 mls @ 125 mls/hr 03/04/20 15:40 03/10/20 08:09 Normal Saline Iv IV CONT 125 mls/hr .Q8H ZENOBIA Administration Ceftriaxone Sodium/Dextrose 1 gm in 50 mls @ 100 mls/hr 03/08/20 14:00 03/10/20 13:55 Rocephin 1 Gm/D5w 50 Ml IVPB 100 mls/hr Q24H ZENOBIA Administration Ipratropium [place] 0.5 mg 03/05/20 09:41 03/07/20 20:42 Ipratropium Br 0.02% Inh Soln 0.5 Mg/2.5 Ml V
[2020-03-10] MEDS: POTASSIUM CHLORIDE 20 MEQ TABLET 40 MEQ PO ×2 (16:15→20:25)
[2020-03-10] MEDS: rOPINIRole HCL 1 MG TABLET PO (20:17)
[2020-03-10] MEDS: CITALOPRAM HYDROBROMIDE 20 MG TABLET 40 MG PO (20:17)
[2020-03-10] MEDS: AMITRIPTYLINE HCL 25 MG TABLET PO (20:17)
[2020-03-10] MEDS: METOPROLOL TARTRATE 50 MG TAB 100 MG PO (20:17)
[2020-03-11] MEDS: SODIUM CHLORIDE 0.9% IV 1,000 ML 125 ML IV CONT ×2 (04:33→17:11)
[2020-03-11 05:36] VITALS: BP 97/53; PULSE 68; RESP 20; TEMP 36.4; O2SAT 98
[2020-03-11 06:19] LABS: Hematocrit 34.9 % (37.0-47.0); Hemoglobin 11.9 g/dL (12.0-15.0); Mean Corpuscular HGB Conc 34.1 g/dl (32-36); Mean Corpuscular Hemoglobin 29.2 pg (26-34); Mean Corpuscular Volume 85.5 fl (80-100); Platelet Count Result 338 k/mm3 (150-375); Red Blood Count 4.08 M/mm3 (4.2-5.4); Red Cell Distribution Width 13.1 % (11.5-14.5)
[2020-03-11 06:33] LABS: Anion Gap 9 mmol/L (8-16); Blood Urea Nitrogen 3 mg/dL (7-17); Calcium 8.1 mg/dL (8.4-10.2); Carbon Dioxide 22 mmol/L (22-30); Chloride 107 mmol/L (98-107); Estimated CRCL calculation 84 ml/min; Estimated Glomerular Filt Rate > 60; Glucose 72 mg/dL (65-105); Magnesium 1.9 mg/dL (1.6-2.3); Potassium 3.4 mmol/L (3.4-5.0); Sodium 138 mmol/L (137-145)
[2020-03-11 08:10] VITALS: O2SAT 98
[2020-03-11] MEDS: FUROSEMIDE 40 MG TABLET PO (08:15)
[2020-03-11] MEDS: DULoxetine HCL 60 MG CAPSULE.DR PO (08:15)
[2020-03-11] MEDS: busPIRone HCL 10 MG TABLET 30 MG PO ×2 (08:15→17:12)
[2020-03-11] MEDS: MONTELUKAST SODIUM 10 MG TABLET PO (08:16)
[2020-03-11] MEDS: hydrOXYzine HCL 25 MG TABLET 50 MG PO ×4 (08:17→20:33)
[2020-03-11] MEDS: PRAVASTATIN SODIUM 20 MG TABLET 80 MG PO (08:17)
[2020-03-11] MEDS: RANOLAZINE 500 MG TAB.ER.12H PO ×2 (08:18→17:12)
[2020-03-11] MEDS: QUEtiapine FUMARATE 100 MG TABLET 200 MG PO ×2 (08:18→20:33)
[2020-03-11] MEDS: POTASSIUM CHLORIDE 20 MEQ TABLET 40 MEQ PO (08:23)
[2020-03-11] MEDS: CHOLESTYRAMINE LIGHT 4 GM POWD.PACK PO ×2 (12:04→18:33)
--- NOTE | 2020-03-11 12:49 | PM.IMPN ---
Progress Note: A&P Assessment and Plan (1) Enterocolitis: Code(s): K52.9 - Noninfective gastroenteritis and colitis, unspecified Status: Acute Assessment and Plan: 03/11/20 12:49 Sofya Azevedo is a 45 year old female patient is a 45-year-old female with history of chronic respiratory failure on home oxygen and COPD patient states she has diarrhea nausea or vomiting for last 2 days, patient also complains abdominal pain, patient states her daughter who was treated for C diff came home about 4 days and and 2 days later patient developed the symptoms, patient states she had a soup yesterday and she was able to hold it, most concern is the diarrhea, described as a mucous, no blood, does c/o feverish, tired fatigue, denies any cough shortness of breath or wheezing other than her underlining COPD, denies any known COVID contact, patient had a CT scan of abdominal showed Greater than normal number of fluid-filled, nondistended loops of large and small bowel, consistent with enterocolitis. Covid is negative on 03/08 patient had a several loose BMs, still complains of nausea or vomiting did have a jello on 03/06 morning and was able to hold it denies any fever or chills, will start patient on full liquids. We have sent the stool for C diff and culture which is negaative, we had empirically started the patient on vancomycin orally its been stopped, patient blood culture is growing Salmonella species not typhi seen by Dr. Cleary started the patient on ceftriaxone recommending until 03/10, PPI is a risk factor for the infection, will stop pronotnix, there is some improvement in he symptoms, does not want advance her diet will continue to monitor and further recommendation to follow. 03/10 today patient states appetite is little better, able to tolerate and no nausea or vomiting, still continued to have loose bowel movement, feels tired and fatigue, hypokalemia most likely secondary to diarrhea will supplement and monitor, today patient will complete her Rocephin today, will continue monitor patient as her symptoms improved will do the discharge planning. 03/11 today patient appetite is little better she is eating yogurt denies any nausea or vomiting, this complaint of diffuse abdominal pain and persistent loose BM, will start the patient on cholestyramine to help solidify stools, patient has completed her course of IV antibiotics for bacteremia with salmonella, once patient is diarrhea improved will do the discharge planning, patient with hypokalemia most likely secondary to diarrhea will continue to monitor and supplement. (2) Sinus tachycardia: Code(s): R00.0 - Tachycardia, unspecified Status: Acute Assessment and Plan: Most likely secondary to stress from diarrhea and dehydration (3) Hypokalemia: Code(s): E87.6 - Hypokalemia Status: Acute Assessment and Plan: Most likely secondary to diarrhea supplement and monitor (4) Acute hyponatremia: Code(s): E87.1 - Hypo-osmolality and hyponatremia Status: Acute Assessment and Plan: Most likely secondary to to dehydration will monitor (5) RUBY (acute kidney injury): Code(s): N17.9 - Acute kidney failure, unspecified Status: Acute Assessment and Plan: Most likely secondary dehydration will monitor kidney function (6) COVID-19 virus test result unknown: Code(s): Z20.828 - Contact with and (suspected) exposure to other viral communicable diseases Status: Acute Assessment and Plan: Patient is being tested an isolated Subjective Date/time seen: 03/11/20 12:49 Sofya Azevedo is a 45 year old female patient is a 45-year-old female with history of chronic respiratory failure on home oxygen and COPD patient states she has diarrhea nausea or vomiting for last 2 days, patient also complains abdominal pain, patient states her daughter who was treated for C diff came home about 4 days and and 2 days later patient dev
[2020-03-11 14:00] VITALS: BP 114/66; PULSE 87; RESP 20; TEMP 37; O2SAT 98
[2020-03-11] MEDS: cloNIDine HCL 0.2 MG TABLET PO (17:12)
[2020-03-11 17:45] VITALS: O2SAT 98
[2020-03-11] MEDS: rOPINIRole HCL 1 MG TABLET PO (20:32)
[2020-03-11] MEDS: CITALOPRAM HYDROBROMIDE 20 MG TABLET 40 MG PO (20:32)
[2020-03-11] MEDS: AMITRIPTYLINE HCL 25 MG TABLET PO (20:32)
[2020-03-11 20:33] VITALS: PULSE 71
[2020-03-11] MEDS: clonazePAM (*CRX) 0.5 MG TABLET 2 MG PO (20:33)
[2020-03-11] MEDS: METOPROLOL TARTRATE 50 MG TAB 100 MG PO (20:33)
[2020-03-11 22:00] VITALS: BP 114/51; PULSE 71; RESP 20; TEMP 36.2; O2SAT 99
[2020-03-12] MEDS: SODIUM CHLORIDE 0.9% IV 1,000 ML 125 ML IV CONT ×2 (02:20→18:32)
[2020-03-12 05:48] VITALS: BP 98/50; PULSE 63; RESP 20; TEMP 36.6; O2SAT 97
[2020-03-12 06:46] LABS: Hematocrit 33.2 % (37.0-47.0); Hemoglobin 11.4 g/dL (12.0-15.0); Mean Corpuscular HGB Conc 34.3 g/dl (32-36); Mean Corpuscular Hemoglobin 28.8 pg (26-34); Mean Corpuscular Volume 83.8 fl (80-100); Mean Platelet Volume 8.9 fl (7.4-10.4); Platelet Count Result 359 k/mm3 (150-375); Red Blood Count 3.96 M/mm3 (4.2-5.4); Red Cell Distribution Width 12.8 % (11.5-14.5); White Blood Count 18.3 K/mm3 (4.5-10.0)
[2020-03-12 07:04] LABS: Anion Gap 7 mmol/L (8-16); Calcium 8.5 mg/dL (8.4-10.2); Carbon Dioxide 25 mmol/L (22-30); Chloride 104 mmol/L (98-107); Estimated CRCL calculation 95 ml/min; Estimated Glomerular Filt Rate > 60; Glucose 87 mg/dL (65-105); Magnesium 1.6 mg/dL (1.6-2.3); Potassium 3.3 mmol/L (3.4-5.0); Sodium 136 mmol/L (137-145)
[2020-03-12 08:00] VITALS: O2SAT 97
[2020-03-12] MEDS: busPIRone HCL 10 MG TABLET 30 MG PO ×2 (08:00→17:49)
[2020-03-12] MEDS: PRAVASTATIN SODIUM 20 MG TABLET 80 MG PO (08:01)
[2020-03-12] MEDS: DULoxetine HCL 60 MG CAPSULE.DR PO (08:01)
[2020-03-12] MEDS: hydrOXYzine HCL 25 MG TABLET 50 MG PO ×4 (08:01→21:10)
[2020-03-12] MEDS: MONTELUKAST SODIUM 10 MG TABLET PO (08:02)
[2020-03-12] MEDS: QUEtiapine FUMARATE 100 MG TABLET 200 MG PO ×2 (08:03→21:10)
[2020-03-12] MEDS: RANOLAZINE 500 MG TAB.ER.12H PO ×2 (08:03→17:51)
[2020-03-12 08:23] LABS: Blood Urea Nitrogen < 2 mg/dL (7-17)
[2020-03-12] MEDS: CHOLESTYRAMINE LIGHT 4 GM POWD.PACK PO (12:52)
[2020-03-12] MEDS: clonazePAM (*CRX) 0.5 MG TABLET 2 MG PO ×2 (12:58→21:11)
--- NOTE | 2020-03-12 13:27 | PM.IMPN ---
Progress Note: A&P Assessment and Plan (1) Enterocolitis: Code(s): K52.9 - Noninfective gastroenteritis and colitis, unspecified Status: Acute Assessment and Plan: 03/12/20 13:27 Sofya Azevedo is a 45 year old female patient is a 45-year-old female with history of chronic respiratory failure on home oxygen and COPD patient states she has diarrhea nausea or vomiting for last 2 days, patient also complains abdominal pain, patient states her daughter who was treated for C diff came home about 4 days and and 2 days later patient developed the symptoms, patient states she had a soup yesterday and she was able to hold it, most concern is the diarrhea, described as a mucous, no blood, does c/o feverish, tired fatigue, denies any cough shortness of breath or wheezing other than her underlining COPD, denies any known COVID contact, patient had a CT scan of abdominal showed Greater than normal number of fluid-filled, nondistended loops of large and small bowel, consistent with enterocolitis. Covid is negative on 03/08 patient had a several loose BMs, still complains of nausea or vomiting did have a jello on 03/06 morning and was able to hold it denies any fever or chills, will start patient on full liquids. We have sent the stool for C diff and culture which is negaative, we had empirically started the patient on vancomycin orally its been stopped, patient blood culture is growing Salmonella species not typhi seen by Dr. Cleary started the patient on ceftriaxone recommending until 03/10, PPI is a risk factor for the infection, will stop pronotnix, there is some improvement in he symptoms, does not want advance her diet will continue to monitor and further recommendation to follow. 03/10 today patient states appetite is little better, able to tolerate and no nausea or vomiting, still continued to have loose bowel movement, feels tired and fatigue, hypokalemia most likely secondary to diarrhea will supplement and monitor, today patient will complete her Rocephin today, will continue monitor patient as her symptoms improved will do the discharge planning. 03/11 today patient appetite is little better she is eating yogurt denies any nausea or vomiting, this complaint of diffuse abdominal pain and persistent loose BM, will start the patient on cholestyramine to help solidify stools, patient has completed her course of IV antibiotics for bacteremia with salmonella, once patient is diarrhea improved will do the discharge planning, patient with hypokalemia most likely secondary to diarrhea will continue to monitor and supplement. 03/12 today patient still complains several loose bowel movement fatigue tired and difficult to ambulate, still has a poor appetite, denies any fever or chills, 0n 03/11 cholestyramine was added without significant improvement, will start the patient on pneumonia to mg every every 8 hours as needed, patient still has hypokalemia most likely secondary to diarrhea will monitor and supplement. (2) Sinus tachycardia: Code(s): R00.0 - Tachycardia, unspecified Status: Acute Assessment and Plan: Most likely secondary to stress from diarrhea and dehydration (3) Hypokalemia: Code(s): E87.6 - Hypokalemia Status: Acute Assessment and Plan: Most likely secondary to diarrhea supplement and monitor (4) Acute hyponatremia: Code(s): E87.1 - Hypo-osmolality and hyponatremia Status: Acute Assessment and Plan: Most likely secondary to to dehydration will monitor (5) RUBY (acute kidney injury): Code(s): N17.9 - Acute kidney failure, unspecified Status: Acute Assessment and Plan: Most likely secondary dehydration will monitor kidney function (6) COVID-19 virus test result unknown: Code(s): Z20.828 - Contact with and (suspected) exposure to other viral communicable diseases Status: Acute Assessment and Plan: Patient is being tested an isolated Subjecti
[2020-03-12 14:00] VITALS: BP 100/52; PULSE 70; RESP 20; TEMP 36.6; O2SAT 98
[2020-03-12] MEDS: LOPERAMIDE HCL 2 MG CAPSULE 4 MG PO (14:23)
[2020-03-12] MEDS: POTASSIUM CHLORIDE 20 MEQ TABLET 40 MEQ PO (14:23)
[2020-03-12] MEDS: DIPHENHYDRAMINE 1%/ZINC 0.1% CREAM 30 GM TUBE 1 APPLIC TOPICAL (18:32)
[2020-03-12] MEDS: rOPINIRole HCL 1 MG TABLET PO (21:10)
[2020-03-12] MEDS: CITALOPRAM HYDROBROMIDE 20 MG TABLET 40 MG PO (21:11)
[2020-03-12] MEDS: AMITRIPTYLINE HCL 25 MG TABLET PO (21:12)
[2020-03-12 22:00] VITALS: BP 96/42; PULSE 72; RESP 20; TEMP 36.7; O2SAT 97
[2020-03-13] MEDS: SODIUM CHLORIDE 0.9% IV 1,000 ML 125 ML IV CONT ×3 (02:45→21:43)
[2020-03-13] MEDS: ACETAMINOPHEN 325 MG TABLET 650 MG PO (05:44)
[2020-03-13] MEDS: LOPERAMIDE HCL 2 MG CAPSULE PO (05:47)
[2020-03-13 06:00] VITALS: BP 123/63; PULSE 77; RESP 20; TEMP 36.9; O2SAT 100
[2020-03-13 06:44] LABS: Hematocrit 34.4 % (37.0-47.0); Hemoglobin 11.8 g/dL (12.0-15.0); Mean Corpuscular HGB Conc 34.3 g/dl (32-36); Mean Corpuscular Hemoglobin 28.9 pg (26-34); Mean Corpuscular Volume 84.1 fl (80-100); Mean Platelet Volume 8.7 fl (7.4-10.4); Platelet Count Result 362 k/mm3 (150-375); Red Blood Count 4.09 M/mm3 (4.2-5.4)
[2020-03-13 07:05] LABS: Anion Gap 3 mmol/L (8-16); Calcium 8.3 mg/dL (8.4-10.2); Carbon Dioxide 27 mmol/L (22-30); Chloride 107 mmol/L (98-107); Estimated CRCL calculation 95 ml/min; Estimated Glomerular Filt Rate > 60; Glucose 84 mg/dL (65-105); Magnesium 1.6 mg/dL (1.6-2.3); Potassium 3.7 mmol/L (3.4-5.0); Sodium 137 mmol/L (137-145)
[2020-03-13] MEDS: QUEtiapine FUMARATE 100 MG TABLET 200 MG PO ×2 (08:10→21:30)
[2020-03-13] MEDS: RANOLAZINE 500 MG TAB.ER.12H PO ×2 (08:11→16:00)
[2020-03-13] MEDS: SPIRONOLACTONE 50 MG TABLET 100 MG PO (08:11)
[2020-03-13] MEDS: cloNIDine HCL 0.2 MG TABLET PO ×3 (08:12→16:01)
[2020-03-13 08:13] VITALS: PULSE 80
[2020-03-13] MEDS: METOPROLOL TARTRATE 50 MG TAB 100 MG PO (08:13)
[2020-03-13] MEDS: hydrOXYzine HCL 25 MG TABLET 50 MG PO ×4 (08:13→21:29)
[2020-03-13] MEDS: busPIRone HCL 10 MG TABLET 30 MG PO ×2 (08:17→16:01)
[2020-03-13] MEDS: MONTELUKAST SODIUM 10 MG TABLET PO (08:17)
[2020-03-13] MEDS: PRAVASTATIN SODIUM 20 MG TABLET 80 MG PO (08:17)
[2020-03-13] MEDS: FUROSEMIDE 40 MG TABLET PO (08:18)
[2020-03-13] MEDS: DULoxetine HCL 60 MG CAPSULE.DR PO (08:18)
[2020-03-13 08:21] VITALS: O2SAT 98
[2020-03-13] MEDS: clonazePAM (*CRX) 0.5 MG TABLET 2 MG PO (08:21)
[2020-03-13 09:27] LABS: Blood Urea Nitrogen < 2 mg/dL (7-17)
[2020-03-13] MEDS: CHOLESTYRAMINE LIGHT 4 GM POWD.PACK PO ×2 (10:11→18:08)
[2020-03-13 14:00] VITALS: BP 95/50; PULSE 66; RESP 20; TEMP 36.4; O2SAT 98
--- NOTE | 2020-03-13 14:49 | WPDINFPN2 ---
Progress Note: A&P Assessment and Plan (1) Enterocolitis: Code(s): K52.9 - Noninfective gastroenteritis and colitis, unspecified Status: Acute Assessment and Plan: 1.Salmonella enteritis with bacteremia. Her use of a PPI is a known risk factor. 2. PCN and sulfa allergies 3. Leukocytosis due to #1, persists, but no symptoms nor signs at this point of distant infection REC Ctx # 6, change to oral therapy x 3 days, after today's dose is given, repeat CBC over time. On analgesics levsin and APAP loperamide. Subjective Date/time seen: 03/13/20 14:49 Interval history: BMs less, down to 3 a day and some form. Appetite ok, no abd pain Exam Narrative: Exam Narrative: afebrile Const: General: no acute distress Other: obese Resp: Effort & Inspection: normal respiratory effort Auscultation: clear to auscultation bilaterally Cardio: Rate: regular rate Rhythm: regular rhythm Heart sounds: no gallops GI: Inspection: non-distended GI Palp: Yes Soft to palpation and No Tenderness to palpation present (GI) Objective Data Vital Signs Vital Signs: Vital Signs - 24 hr 03/12/20 22:00 03/13/20 06:00 03/13/20 08:13 Temperature 36.7 C 36.9 C Pulse Rate 72 77 80 Respiratory Rate 20 20 Blood Pressure 96/42 L 123/63 Pulse Oximetry 97 100 03/13/20 08:21 03/13/20 14:00 Temperature 36.4 C L Pulse Rate 66 Respiratory Rate 20 Blood Pressure 95/50 L Pulse Oximetry 98 98 Intake/Output Intake/Output: Intake & Output 03/10/20 03/11/20 03/12/20 03/13/20 23:59 23:59 23:59 23:59 Intake Total 4500 3550 3870 2640 Output Total 1250 3250 500 Balance 4500 2300 620 2140 Meds/Results Medications: Active Medications Generic Name Dose Route Start Last Admin Trade Name Freq PRN Reason Stop Dose Admin Acetaminophen 650 mg 03/05/20 21:50 03/13/20 05:44 Acetaminophen 325 Mg Tablet PO 650 mg Q4H PRN Administration Mild Pain (1-3) or Fever Albuterol 2.5 mg 03/05/20 09:40 03/07/20 20:42 Albuterol Sulfate Neb 2.5 Mg/0.5 Ml Inh INHALATION 2.5 mg QID PRN Administration Shortness Of Breath Amitriptyline HCl 25 mg 03/05/20 21:00 03/12/20 21:12 Amitriptyline Hcl 25 Mg Tablet PO 25 mg HS ZENOBIA Administration Budesonide/Formoterol Fumarate 2 puff 03/05/20 08:00 03/13/20 08:08 Budesonide/Form 160-4.5 Mcg (*Sp) INHALATION 2 puff Q12HRT ZENOBIA Administration Buspirone HCl 30 mg 03/05/20 11:10 03/13/20 08:17 Buspirone Hcl 10 Mg Tablet PO 30 mg BID ZENOBIA Administration Cholestyramine Resin 4 gm 03/11/20 10:00 03/13/20 10:11 Cholestyramine Light 4 Gm Powd.Pack PO 4 gm BID@1000,1800 ZENOBIA Administration Citalopram Hydrobromide 40 mg 03/05/20 21:00 03/12/20 21:11 Citalopram Hydrobromide 20 Mg Tablet PO 40 mg HS ZENOBIA Administration Clonazepam 2 mg 03/05/20 09:13 03/13/20 08:21 Clonazepam (*Crx) 0.5 Mg Tablet PO 2 mg BID PRN Administration Anxiety Clonidine HCl 0.2 mg 03/05/20 13:00 03/13/20 12:28 Clonidine Hcl 0.2 Mg Tablet PO 0.2 mg TID ZENOBIA Administration Duloxetine HCl 60 mg 03/05/20 11:03 03/13/20 08:18 Duloxetine Hcl 60 Mg Capsule.Dr PO 60 mg QAM ZENOBIA Administration Furosemide 40 mg 03/05/20 09:00 03/13/20 08:18 Furosemide 40 Mg Tablet PO 40 mg Q48H ZENOBIA Administration Hydroxyzine HCl 50 mg 03/05/20 13:00 03/13/20 12:28 Hydroxyzine Hcl 25 Mg Tablet PO 50 mg QID ZENOBIA Administration Hyoscyamine 0.125 mg 03/05/20 09:13 03/08/20 06:07 Hyoscyamine Sulfate 0.125 Mg Tablet PO 0.125 mg TID PRN Administration Cramps Sodium Chloride 1,000 mls @ 125 mls/hr 03/04/20 15:40 03/13/20 10:59 Normal Saline Iv IV CONT 125 mls/hr .Q8H ZENOBIA Administration Ipratropium [place] 0.5 mg 03/05/20 09:41 03/07/20 20:42 Ipratropium Br 0.02% Inh Soln 0.5 Mg/2.5 Ml Vial INHALATION 0.5 mg QID PRN Administration Shortness Of Breath Loperamide HCl 2 mg 03/12/20 22:0
--- NOTE | 2020-03-13 16:45 | P.PNIM_ITS ---
Progress Note: A&P Assessment and Plan (1) Enterocolitis: Code(s): K52.9 - Noninfective gastroenteritis and colitis, unspecified Status: Acute Assessment and Plan: 03/12/20 13:27 Sofya Azevedo is a 45 year old female patient is a 45-year-old female with history of chronic respiratory failure on home oxygen and COPD patient states she has diarrhea nausea or vomiting for last 2 days, patient also complains abdominal pain, patient states her daughter who was treated for C diff came home about 4 days and and 2 days later patient developed the symptoms, patient states she had a soup yesterday and she was able to hold it, most concern is the diarrhea, described as a mucous, no blood, does c/o feverish, tired fatigue, denies any cough shortness of breath or wheezing other than her underlining COPD, denies any known COVID contact, patient had a CT scan of abdominal showed Greater than normal number of fluid-filled, nondistended loops of large and small bowel, consistent with enterocolitis. Covid is negative on 03/08 patient had a several loose BMs, still complains of nausea or vomiting did have a jello on 03/06 morning and was able to hold it denies any fever or chills, will start patient on full liquids. We have sent the stool for C diff and culture which is negaative, we had empirically started the patient on vancomycin orally its been stopped, patient blood culture is growing Salmonella species not typhi seen by Dr. Cleary started the patient on ceftriaxone recommending until 03/10, PPI is a risk factor for the infection, will stop pronotnix, there is some improvement in he sympto ms, does not want advance her diet will continue to monitor and further recommendation to follow. 03/10 today patient states appetite is little better, able to tolerate and no nausea or vomiting, still continued to have loose bowel movement, feels tired and fatigue, hypokalemia most likely secondary to diarrhea will supplement and monitor, today patient will complete her Rocephin today, will continue monitor patient as her symptoms improved will do the discharge planning. 03/11 today patient appetite is little better she is eating yogurt denies any nausea or vomiting, this complaint of diffuse abdominal pain and persistent loose BM, will start the patient on cholestyramine to help solidify stools, patient has completed her course of IV antibiotics for bacteremia with salmonella, once patient is diarrhea improved will do the discharge planning, patient with hypokalemia most likely secondary to diarrhea will continue to monitor and supplement. 03/12 today patient still complains several loose bowel movement fatigue tired and difficult to ambulate, still has a poor appetite, denies any fever or chills, 0n 03/11 cholestyramine was added without significant improvement, will start the patient on pneumonia to mg every every 8 hours as needed, patient still has hypokalemia most likely secondary to diarrhea will monitor and supplement. 03/13 on 0n 03/11 cholestyramine was added there is some improvement and on added Imodium and this is helping with frequency of BM, today patient states feeling better has a good appetite will going advanced her diet will continue to monitor if remains clinically stable may may discharge the patient tomorrow (2) Sinus tachycardia: Code(s): R00.0 - Tachycardia, unspecified Status: Acute Assessment and Plan: Most likely secondary to stress from diarrhea and dehydration (3) Hypokalemia: Code(s): E87.6 - Hypokalemia Status: Acute Assessment and Plan: Most likely secondary to diarrhea supplement and monitor (4) Acute hyponatremia: Code(s): E87.1 - Hypo-
[2020-03-13] MEDS: AMITRIPTYLINE HCL 25 MG TABLET PO (21:29)
[2020-03-13] MEDS: CITALOPRAM HYDROBROMIDE 20 MG TABLET 40 MG PO (21:29)
[2020-03-13 21:30] VITALS: O2SAT 93
[2020-03-13] MEDS: rOPINIRole HCL 1 MG TABLET PO (21:30)
[2020-03-13 22:00] VITALS: BP 107/57; PULSE 65; RESP 20; TEMP 36.8; O2SAT 93
[2020-03-14] MEDS: SODIUM CHLORIDE 0.9% IV 1,000 ML 125 ML IV CONT ×2 (05:06→13:04)
[2020-03-14 06:00] VITALS: BP 148/61; PULSE 71; RESP 20; TEMP 36.9; O2SAT 96
[2020-03-14] MEDS: cloNIDine HCL 0.2 MG TABLET PO ×2 (09:42→13:00)
[2020-03-14] MEDS: CEFDINIR 300 MG CAPSULE PO (09:42)
[2020-03-14] MEDS: busPIRone HCL 10 MG TABLET 30 MG PO (09:42)
[2020-03-14 09:43] VITALS: PULSE 71
[2020-03-14] MEDS: hydrOXYzine HCL 25 MG TABLET 50 MG PO ×2 (09:43→13:00)
[2020-03-14] MEDS: METOPROLOL TARTRATE 50 MG TAB 100 MG PO (09:43)
[2020-03-14] MEDS: DULoxetine HCL 60 MG CAPSULE.DR PO (09:43)
[2020-03-14] MEDS: QUEtiapine FUMARATE 100 MG TABLET 200 MG PO (09:44)
[2020-03-14] MEDS: MONTELUKAST SODIUM 10 MG TABLET PO (09:44)
[2020-03-14] MEDS: RANOLAZINE 500 MG TAB.ER.12H PO (09:44)
[2020-03-14] MEDS: PRAVASTATIN SODIUM 20 MG TABLET 80 MG PO (09:44)
[2020-03-14] MEDS: SPIRONOLACTONE 50 MG TABLET 100 MG PO (09:45)
[2020-03-14 09:55] LABS: Anion Gap 8 mmol/L (8-16); Blood Urea Nitrogen 2 mg/dL (7-17); Calcium 8.6 mg/dL (8.4-10.2); Carbon Dioxide 25 mmol/L (22-30); Chloride 105 mmol/L (98-107); Estimated CRCL calculation 95 ml/min; Estimated Glomerular Filt Rate > 60; Glucose 81 mg/dL (65-105); Magnesium 1.7 mg/dL (1.6-2.3); Potassium 3.6 mmol/L (3.4-5.0); Sodium 138 mmol/L (137-145)
[2020-03-14 10:52] VITALS: O2SAT 95
[2020-03-14 11:04] LABS: Hemoglobin 11.7 g/dL (12.0-15.0); Mean Corpuscular HGB Conc 34.4 g/dl (32-36); Mean Corpuscular Hemoglobin 28.9 pg (26-34); Mean Platelet Volume 8.4 fl (7.4-10.4); Platelet Count Result 354 k/mm3 (150-375); Red Blood Count 4.05 M/mm3 (4.2-5.4); Red Cell Distribution Width 12.9 % (11.5-14.5); White Blood Count 12.8 K/mm3 (4.5-10.0)
--- NOTE | 2020-03-14 12:14 | WPDINFPN2 ---
Progress Note: A&P Assessment and Plan (1) Enterocolitis: Code(s): K52.9 - Noninfective gastroenteritis and colitis, unspecified Status: Acute Assessment and Plan: 1.Salmonella enteritis with bacteremia. Her use of a PPI is a known risk factor. 2. PCN and sulfa allergies 3. Leukocytosis due to #1, better REC Cefdinir # 1 / 3 days, ok home, will sign off, no isolation needed at home. Subjective Date/time seen: 03/14/20 12:14 Interval history: no BMs past 24 hours Exam Narrative: Exam Narrative: afebrile Const: General: no acute distress GI: Inspection: non-distended GI Palp: Yes Soft to palpation and No Tenderness to palpation present (GI) Skin: General skin exam: no rashes or lesions noted Objective Data Vital Signs Vital Signs: Vital Signs - 24 hr 03/13/20 14:00 03/13/20 21:30 03/13/20 22:00 Temperature 36.4 C L 36.8 C Pulse Rate 66 65 Respiratory Rate 20 20 Blood Pressure 95/50 L 107/57 L Pulse Oximetry 98 93 93 03/14/20 06:00 03/14/20 09:43 03/14/20 10:52 Temperature 36.9 C Pulse Rate 71 71 Respiratory Rate 20 Blood Pressure 148/61 H Pulse Oximetry 96 95 Intake/Output Intake/Output: Intake & Output 03/11/20 03/12/20 03/13/20 03/14/20 23:59 23:59 23:59 23:59 Intake Total 3550 3870 4040 1780 Output Total 1250 3250 2000 100 Balance 2300 620 2040 1680 Meds/Results Medications: Active Medications Generic Name Dose Route Start Last Admin Trade Name Freq PRN Reason Stop Dose Admin Acetaminophen 650 mg 03/05/20 21:50 03/13/20 05:44 Acetaminophen 325 Mg Tablet PO 650 mg Q4H PRN Administration Mild Pain (1-3) or Fever Albuterol 2.5 mg 03/05/20 09:40 03/07/20 20:42 Albuterol Sulfate Neb 2.5 Mg/0.5 Ml Inh INHALATION 2.5 mg QID PRN Administration Shortness Of Breath Amitriptyline HCl 25 mg 03/05/20 21:00 03/13/20 21:29 Amitriptyline Hcl 25 Mg Tablet PO 25 mg HS ZENOBIA Administration Budesonide/Formoterol Fumarate 2 puff 03/05/20 08:00 03/14/20 09:41 Budesonide/Form 160-4.5 Mcg (*Sp) INHALATION 2 puff Q12HRT ZENOBIA Administration Buspirone HCl 30 mg 03/05/20 11:10 03/14/20 09:42 Buspirone Hcl 10 Mg Tablet PO 30 mg BID ZENOBIA Administration Cefdinir 300 mg 03/14/20 09:00 03/14/20 09:42 Cefdinir 300 Mg Capsule PO 03/16/20 21:01 300 mg Q12HR ZENOBIA Administration Cholestyramine Resin 4 gm 03/11/20 10:00 03/14/20 11:25 Cholestyramine Light 4 Gm Powd.Pack PO Not Given BID@1000,1800 ZENOBIA Citalopram Hydrobromide 40 mg 03/05/20 21:00 03/13/20 21:29 Citalopram Hydrobromide 20 Mg Tablet PO 40 mg HS ZENOBIA Administration Clonazepam 2 mg 03/05/20 09:13 03/13/20 08:21 Clonazepam (*Crx) 0.5 Mg Tablet PO 2 mg BID PRN Administration Anxiety Clonidine HCl 0.2 mg 03/05/20 13:00 03/14/20 09:42 Clonidine Hcl 0.2 Mg Tablet PO 0.2 mg TID ZENOBIA Administration Duloxetine HCl 60 mg 03/05/20 11:03 03/14/20 09:43 Duloxetine Hcl 60 Mg Capsule.Dr PO 60 mg QAM ZENOBIA Administration Furosemide 40 mg 03/05/20 09:00 03/13/20 08:18 Furosemide 40 Mg Tablet PO 40 mg Q48H ZENOBIA Administration Hydroxyzine HCl 50 mg 03/05/20 13:00 03/14/20 09:43 Hydroxyzine Hcl 25 Mg Tablet PO 50 mg QID ZENOBIA Administration Hyoscyamine 0.125 mg 03/05/20 09:13 03/08/20 06:07 Hyoscyamine Sulfate 0.125 Mg Tablet PO 0.125 mg TID PRN Administration Cramps Sodium Chloride 1,000 mls @ 125 mls/hr 03/04/20 15:40 03/14/20 05:06 Normal Saline Iv IV CONT 125 mls/hr .Q8H ZENOBIA Administration Ipratropium [place] 0.5 mg 03/05/20 09:41 03/07/20 20:42 Ipratropium Br 0.02% Inh Soln 0.5 Mg/2.5 Ml Vial INHALATION 0.5 mg QID PRN Administration Shortness Of Breath Loperamide HCl 2 mg 03/12/20 22:00 03/13/20 05:47 Loperamide Hcl 2 Mg Capsule PO 2 mg PRN PRN Administration Diarrhea Metoprolol Tartrate 100 mg 03/05/20 09:15 03/14/20 09:
--- NOTE | 2020-03-14 13:12 | PM.DS ---
DS: Admitting Diagnosis Admitting Diagnosis Admitting Diagnosis: Nausea, vomiting and diarrhea DS: Discharge Diagnosis Discharge Diagnosis (1) Enterocolitis: Code(s): K52.9 - Noninfective gastroenteritis and colitis, unspecified Status: Acute Assessment and Plan: 03/12/20 13:27 Sofya Azevedo is a 45 year old female patient is a 45-year-old female with history of chronic respiratory failure on home oxygen and COPD patient states she has diarrhea nausea or vomiting for last 2 days, patient also complains abdominal pain, patient states her daughter who was treated for C diff came home about 4 days and and 2 days later patient developed the symptoms, patient states she had a soup yesterday and she was able to hold it, most concern is the diarrhea, described as a mucous, no blood, does c/o feverish, tired fatigue, denies any cough shortness of breath or wheezing other than her underlining COPD, denies any known COVID contact, patient had a CT scan of abdominal showed Greater than normal number of fluid-filled, nondistended loops of large and small bowel, consistent with enterocolitis. Covid is negative on 03/08 patient had a several loose BMs, still complains of nausea or vomiting did have a jello on 03/06 morning and was able to hold it denies any fever or chills, will start patient on full liquids. We have sent the stool for C diff and culture which is negaative, we had empirically started the patient on vancomycin orally its been stopped, patient blood culture is growing Salmonella species not typhi seen by Dr. Cleary started the patient on ceftriaxone recommending until 03/10, PPI is a risk factor for the infection, will stop pronotnix, there is some improvement in he symptoms, does not want advance her diet will continue to monitor and further recommendation to follow. 03/10 today patient states appetite is little better, able to tolerate and no nausea or vomiting, still continued to have loose bowel movement, feels tired and fatigue, hypokalemia most likely secondary to diarrhea will supplement and monitor, today patient will complete her Rocephin today, will continue monitor patient as her symptoms improved will do the discharge planning. 03/11 today patient appetite is little better she is eating yogurt denies any nausea or vomiting, this complaint of diffuse abdominal pain and persistent loose BM, will start the patient on cholestyramine to help solidify stools, patient has completed her course of IV antibiotics for bacteremia with salmonella, once patient is diarrhea improved will do the discharge planning, patient with hypokalemia most likely secondary to diarrhea will continue to monitor and supplement. 03/12 today patient still complains several loose bowel movement fatigue tired and difficult to ambulate, still has a poor appetite, denies any fever or chills, 0n 03/11 cholestyramine was added without significant improvement, will start the patient on pneumonia to mg every every 8 hours as needed, patient still has hypokalemia most likely secondary to diarrhea will monitor and supplement. 03/13 on 0n 03/11 cholestyramine was added there is some improvement and on added Imodium and this is helping with frequency of BM, today patient states feeling better has a good appetite will going advanced her diet will continue to monitor if remains clinically stable may may discharge the patient tomorrow (2) Sinus tachycardia: Code(s): R00.0 - Tachycardia, unspecified Status: Acute Assessment and Plan: Most likely secondary to stress from diarrhea and dehydration (3) Hypokalemia: Code(s): E87.6 - Hypokalemia Status: Acute Assessment and Plan: Most likely secondary to diarrhea supplement and monitor (4) Acute hyponatremia: Code(s): E87.1 - Hypo-osmolality and hyponatremia Status: Acute Assessment and Plan: Most likely secondary to to dehydration will monitor (5) RUBY (acute kidney injury
[2020-03-14 14:00] VITALS: BP 123/52; PULSE 62; RESP 20; TEMP 36.8; O2SAT 98
== END 2020-03-14 14:35 | disposition home or self-care (01) | DRG 372 ==
LOC: ANHED 14:47 → ANH3MEDSUR 16:06
PROVIDERS: Admitting Provider Family Medicine; Emergency Provider Emergency Medicine; PCP Nurse Practitioner Family; Visit Provider Family Medicine
DX: A02.0 Salmonella enteritis (principal); N17.9 Acute kidney failure, unspecified; E87.1 Hypo-osmolality and hyponatremia; J96.10 Chronic respiratory failure, unspecified whether with hypoxia or hypercapnia; R78.81 Bacteremia; Z20.822 Contact with and (suspected) exposure to COVID-19; Z20.09 Contact with and (suspected) exposure to other intestinal infectious diseases; E87.6 Hypokalemia; E86.0 Dehydration; J44.9 Chronic obstructive pulmonary disease, unspecified; F31.9 Bipolar disorder, unspecified; R00.0 Tachycardia, unspecified; Z88.0 Allergy status to penicillin; Z88.2 Allergy status to sulfonamides; Z99.81 Dependence on supplemental oxygen
CPT/HCPCS: 36415; 71045; 74177; 80048; 80053; 81001; 82274; 83690; 83735; 85025; 85027; 87015; 87040; 87077; 87177; 87186; 87209; 87269; 87272; 87324; 93005; 94640; 96361; 96374; 96376; 99285; A9270; C9803; G0378; J0696; J2405; J3480; J7030; Q9967; U0003

== ENCOUNTER 2020-12-20 12:32 | Outpatient (CLI) | payer BC, MEDICAID, SELFPAY ==
--- NOTE | 2020-12-20 16:42 | WPDSIXMINUTE ---
Six Minute Walk Procedure Procedure Performed Pulmonary Stress Test (6 min walk) Six Minute Walk This is a 6 minute walk test. The test was performed and interpreted in accordance with the 2014 ERS/ATS task force guidelines. Findings: The patient's resting room air oxygen saturation measured by pulse oximetry was 94% and her heart rate was 85 bpm. Patient ambulated for 244 meters and oxygen saturation remained 94 to 95%. Heart rate at the end of the study was 93 bpm. The patient did not qualify for supplemental oxygen at rest or with ambulation. There are no prior studies for comparison.
== END 2020-12-20 12:33 | disposition home or self-care (01) ==
PROVIDERS: PCP Nurse Practitioner Family
DX: J44.9 Chronic obstructive pulmonary disease, unspecified (principal)
CPT/HCPCS: 94618

== ENCOUNTER 2021-01-23 13:30 | Outpatient (RCR) | payer BC, MEDICAID, SELFPAY ==
[2020-12-15 12:13] VITALS: PULSE 63
--- NOTE | 2020-12-19 09:11 | PCCPR ---
Absent today, not feeling well.
--- NOTE | 2020-12-29 09:52 | PCCPR ---
Called Sofya today because she has not returned since her orientation. She stated that she has been sick and plans to return Friday.
--- NOTE | 2021-01-02 12:02 | PCCPR ---
Sofya did not show up today for her 929 session, I called her and she stated that she had told us that she was wanted to come at 1330 today. Last I talked with her she did not mention that she was coming at 1330, but did mention that she wanted to come at 1330 to her first session which was on December 19.
--- NOTE | 2021-01-05 10:27 | PCCPR ---
ABSENT-CAR TROUBLES
[2021-01-09 14:50] LABS: Glucose Point of Care 145 mg/dl (65-105)
--- NOTE | 2021-01-19 11:11 | PCCPR ---
Absent today due to illness. Patient called and stated that she and her children were all sick at this time and she was going to stay home.
--- NOTE | 2021-01-30 13:52 | PCCPR ---
Absent due to family emergency Sofya called and let us know her mother in law was just placed on hospice and did not know how long she would be out. She also expressed concern they have x 1 car and transportation may affect her attendance. Encouraged she just stay informed.
--- NOTE | 2021-02-09 13:56 | PCCPR ---
Department closure left for Sofya we are closed Tuesday 02/13 to new monitor training. Also reminded her we have not seen her since 01/23/21 of our attendance policy and the importance of letting us know why she is absent.
--- NOTE | 2021-03-06 10:43 | PCCPR ---
Followed up with Sofya today regarding her return. Her [id number] continues on Hospice and she is also dealing with family issues that prevent her from attending. She request that we follow up with her beginning of April.
== END 2021-04-02 15:31 | disposition home or self-care (01) ==
LOC: ANHCPREHAB 13:30
PROVIDERS: PCP Nurse Practitioner Family
DX: J44.9 Chronic obstructive pulmonary disease, unspecified (principal)
CPT/HCPCS: 97150; G0424

== ENCOUNTER 2021-09-05 12:52 | Outpatient (CLI) | payer BC, MEDICAID, SELFPAY ==
--- NOTE | 2021-09-05 17:50 | P.PCNPFT_ITS ---
PFT Procedure Performed PFT Procedure Performed Spirometry with Pre/Post Bronchodilator Flow Vol Loop PFT Interpretation This is a pulmonary function test with pre and post-bronchodilator spirometry. The test was performed and results interpreted in accordance with the 2019 and 2005 ATS/ERS Task Force guidelines respectively using the Global Lung Function Initiative-2012 reference equations. Patient demonstrated good effort and cooperation. Reproducibility criteria were met. The quality of the pre [facility] hodilator spirometry maneuver was Grade A and post bronchodilator spirometry maneuver was Grade A. Findings: Spirometry: There is decreased maximal expiratory airflow at all lung volumes with a concave expiratory flow tracing. The pre bronchodilator FVC is 2.07 L, 57% predicted. The pre bronchodilator FEV1 is 1.08 L, 37% predicted. The pre bronchodilator FEV1: FVC ratio is 52%. The post bronchodilator FVC is 2.48 L, representing a 20% increase. The post bronchodilator FEV1 is 1.35 L, representing a 24% increase. The post bronchodilator FEV1: FVC ratio is 54%. Impression: There is a severe obstructive abnormality with significant improvement after inhaling a single dose of albuterol. A concurrent restrictive abnormality cannot be excluded as lung volumes were not measured. There are no prior studies for comparison
== END 2021-09-05 12:53 | disposition home or self-care (01) ==
LOC: ANHPFT 12:53
PROVIDERS: PCP Nurse Practitioner Family
DX: J44.9 Chronic obstructive pulmonary disease, unspecified (principal); R94.2 Abnormal results of pulmonary function studies
CPT/HCPCS: 94060; 94375

== ENCOUNTER 2022-09-18 12:48 | Outpatient (CLI) | payer BC, MEDICAID, SELFPAY ==
--- NOTE | 2022-09-18 | ECHO_ITS ---
Patient Info Name: Sofya Azevedo Age: 47 years : 1975 Gender: Female Ht: 65 in Wt: 222 lbs BSA: 2.19 m2 HR: 85 bpm BP: 120 / 76 mmHg Heart Rhythm: Sinus Rhythm Technical Quality: Poor Exam Date: 09/18/2022 1:14 PM Exam Location: [facility] [facility] Patient Status: Outpatient Admit Date: 09/18/2022 Staff Ordering Physician: GuichoBryanna APRN Director Television News: Roland Cardona RDCS Attending Provider: AlejoBryanna APRN Exam Type: CA echo transthoracic complete Study Info Indications - COPD Complete two-dimensional, color flow and Doppler transthoracic echocardiogram is performed. Reason for Poor Study: poor echocardiographic windows Summary 1. Complete two-dimensional, color flow and Doppler transthoracic echocardiogram is performed. 2. Technically suboptimal study due to poor sonographic images. 3. Left ventricular chamber dimension is normal. 4. Left ventricular systolic function is normal, estimated at 60-65%. 5. The left ventricular diastolic function is grade I diastolic dysfunction. 6. E/e' 6 is not elevated. 7. There is trace aortic valve regurgitation. 8. No pulmonary hypertension, estimated pulmonary arterial systolic pressure is 10 mmHg. Left Ventricle E/e' 6 is not elevated. Technically suboptimal study due to poor sonographic images. Left ventricular chamber dimension is normal. Left ventricular systolic function is normal, estimated at 60-65%. The left ventricular diastolic function is grade I diastolic dysfunction. Right Ventricle Right ventricular systolic function is normal and with normal TAPSE 2.6 cm. Right ventricular chamber dimension is normal. Left Atria Left atrial chamber dimension is normal. Right Atria Right atrial chamber dimension is normal. Aortic Valve The aortic valve is not well visualized. Cannot determine number of aortic valve leaflets. There is no aortic valve stenosis. There is trace aortic valve regurgitation. Pulmonic Valve There is no pulmonic regurgitation. Mitral Valve There is no mitral valve stenosis. There is no mitral valve regurgitation. Tricuspid Valve There is no tricuspid valve regurgitation. No pulmonary hypertension, estimated pulmonary arterial systolic pressure is 10 mmHg. Pericardium/Pleural There is no pericardial effusion. Inferior Vena Cava Normal inferior vena cava with >50% collapse upon inspiration consistent with normal right atrial pressure, 5 mmHg. Aorta The aortic root size at the sinus of Valsalva is normal. Left Ventricular Outflow Tract Name Value Normal LVOT 2D LVOT Diameter 2.2 cm LVOT Doppler LVOT Peak Gradient 11 mmHg LVOT Mean Gradient 6 mmHg LVOT VTI 24 cm LVOT VTI/AV VTI Ratio 1.0 LVOT Stroke Volume 89 ml LVOT CO 8.0 l/min LVOT CI 3.6 l/min/m2 Pulmonic Valve Name
== END 2022-09-18 12:49 | disposition home or self-care (01) ==
PROVIDERS: PCP Nurse Practitioner Family; Visit Provider Nurse Practitioner Gerontology
DX: J44.9 Chronic obstructive pulmonary disease, unspecified (principal)
CPT/HCPCS: 93306

== ENCOUNTER 2023-07-21 14:43 | Outpatient (CLI) | payer BC, SELFPAY ==
--- NOTE | ~2023-07-21 | MR_ITS ---
EXAMINATION: MR cervical spine wo con DATE: 07/21/2023 15:19 INDICATION: Cervical radicular pain TECHNIQUE: Magnetic resonance imaging (MRI) of the cervical spine was performed without intravenous c ontrast. Sequences included sagittal T2-weighted FSE, sagittal T2-weighted FS FSE, sagittal T1-weight ed FSE, axial MERGE and axial T2-weighted FSE. COMPARISON: None FINDINGS: Bone alignment is normal. Vertebral body heights are normal. Bone marrow signal intensity is normal . Minimal disc height loss at C5-C6. Cord signal intensity is normal. The following disc levels are s pecifically discussed: C2-C3: The disc does not extend beyond the endplate margin. There is no uncovertebral joint osteoarth ritis. There is mild bilateral facet joint osteoarthritis. There is no neural foraminal stenosis. The re is no central canal stenosis. C3-C4: Small central disc protrusion. There is no uncovertebral joint osteoarthritis. There is mild l eft facet joint osteoarthritis. There is no neural foraminal stenosis. There is minimal central canal stenosis. C4-C5: Small central disc protrusion. There is no uncovertebral joint osteoarthritis. There is mild r ight facet joint osteoarthritis. There is no neural foraminal stenosis. There is minimal central nicole l stenosis. C5-C6: Disc is bulging. There is mild bilateral uncovertebral joint osteoarthritis. There is mild rig ht and moderate left facet joint osteoarthritis. There is no neural foraminal stenosis. There is mild central canal stenosis. C6-C7: Disc is bulging, eccentric to the right. There is mild bilateral uncovertebral joint osteoarth ritis. There is mild right facet joint osteoarthritis. There is mild left neural foraminal stenosis. There is mild central canal stenosis. C7-T1: The disc does not extend beyond the endplate margin. There is no uncovertebral joint osteoarth ritis. There is mild bilateral facet joint osteoarthritis. There is no neural foraminal stenosis. The re is no central canal stenosis. IMPRESSION: 1. Mild cervical spondylosis. Reviewed, dictated and finalized at location A.
== END 2023-07-21 14:44 ==
LOC: MICIMG 14:44
PROVIDERS: PCP Internal Medicine; Visit Provider Nurse Practitioner Family
DX: M43.02 Spondylolysis, cervical region (principal)
CPT/HCPCS: 72141